=== PATIENT | male | born 1980 | race Caucasian/White ===

== ENCOUNTER → 2016-11-17 | Outpatient (CLI) | payer OTHER ==
--- NOTE | 2016-11-17 08:05 | US ---
EXAMINATION TYPE: US abdomen complete DATE OF EXAM: 11/17/2016 7:34 AM COMPARISON: NONE CLINICAL HISTORY: R10.9 ABD Pain. Patient states has abdominal bloating x 2 months with MARCUS, has HX o f asthma EXAM MEASUREMENTS: Liver Length: 17.2 cm Gallbladder Wall: 0.2 cm CBD: 0.4 cm Spleen: 10.7 cm Right Kidney: 11.9 x 6.8 x 4.9 cm Left Kidney: 11.5 x 5.5 x 5.5 cm TECHNOLOGIST IMPRESSION: Pancreas: hyperechoic and limitedly seen due to overlying bowel gas that is prominent throughout who le midline abdomen Liver: hyperchoic Gallbladder: wnl Evidence for sonographic Browne's sign: No CBD: wnl Spleen: wnl Right Kidney: wnl Left Kidney: wnl Upper IVC: wnl Abd Aorta: wnl Pancreas is felt suboptimally evaluated on images saved due to shadowing from overlying bowel gas and patient's body habitus. Liver is heterogeneously hyperechoic in appearance suggesting diffuse fatty infiltration. No hepatic ductal dilatation is seen. Evaluation for focal masses is limited due to the heterogeneity. IMPRESSION: No ascites is present. Probable fatty infiltration of liver is noted.
== END | disposition home or self-care (01) ==
LOC: RADUSWWP 06:47
PROVIDERS: ATTEND Family Medicine
DX: R10.9 Unspecified abdominal pain (principal)
CPT/HCPCS: 76700

== ENCOUNTER 2016-12-13 08:25 | Day surgery (SDC) | payer OTHER ==
[2016-12-11 14:42] VITALS: BMI 33.2
[2016-12-13 09:17] VITALS: TEMP 97.6
[2016-12-13] MEDS: LACTATED RINGERS 1,000 ML IV SCH (09:18)
[2016-12-13] MEDS ORDERED: LIDOCAINE 1% INJ 10MG/ML (20 ML MDV) ONE (09:21)
[2016-12-13] MEDS ORDERED: PROPOFOL 10 MG/ML 20 ML VIAL IV ONE (09:21)
--- NOTE | 2016-12-13 09:43 | P.PCN ---
Date of Procedure: 12/13/16 Procedure(s) Performed: Brief history: Patient is a pleasant 36-year-old white male, scheduled for an elective upper endoscopy as well as colonoscopy as a part of evaluation of gastric esophageal reflux symptoms, abdominal bloating and intermittent rectal bleeding for the last 6 months duration. Procedure performed: Esophagogastroduodenoscopy with biopsy Colonoscopy Preoperative diagnosis: Abdominal bloating Rectal bleeding Anesthesia: MAC Procedure: After informed consent was obtained from the patient was brought into the endoscopy unit and IV conscious sedation was administered by anesthesia under continuous monitoring. Initially upper endoscopy was done. The Olympus GF 160 video endoscope was inserted inserted into the mouth and esophagus intubated without any difficulty and was gradually advanced into the stomach and duodenum and carefully examined. The bulb and second part of the duodenum appeared normal. Biopsies were done from the duodenum to rule out celiac disease. The scope was then withdrawn into the stomach adequately insufflated with air and upon careful examination the antrum had mild gastritis and biopsies were done from this area. The body, cardia and fundus appeared normal. The scope was then withdrawn into the esophagus. The GE junction was located at 40 cm to the incisors. It appeared regular wit2 superficial erosions consistent with LA grade B reflux esophagitis.Rest of the esophagus appeared normal. Patient tolerated the procedure well. At this time the patient continued to remain sedation. Initial digital rectal examination was normal. Olympus CF 160 video colonoscope was then inserted into the rectum and gradually advanced to the cecum without any difficulty. Careful examination was performed as the scope was gradually being withdrawn. The prep was excellent. The cecum, ascending colon, transverse colon, descending colon, sigmoid colon and rectum appeared normal. Retroflexion was performed in the rectum and no lesions were noted. Patient tolerated the procedure well. Impression: 1. Upper endoscopy revealed LA grade B reflux esophagitis, small hiatal hernia and mild antral gastritis 2. Colonoscopy revealed normal-appearing colon from rectum to cecum with no evidence of colitis or colorectal neoplasia. Recommendations: Findings of this examination were discussed with the patient as well as his family. He was advised to follow with the biopsy results. he was advised to increase Prilosec to 20 mg twice daily for 8 weeks and then down to 20 mg daily. He was briefly educated about and reflux measures.
[2016-12-13 09:49] VITALS: RESP 16
[2016-12-13 10:04] VITALS: BP 116/79; PULSE 76
== END 2016-12-13 10:23 | disposition home or self-care (01) ==
LOC: ORWHC2ENDO 08:25
PROVIDERS: ATTEND Internal Medicine Gastroenterology
DX: K21.0 Gastro-esophageal reflux disease with esophagitis (principal); K29.70 Gastritis, unspecified, without bleeding; K44.9 Diaphragmatic hernia without obstruction or gangrene; K62.5 Hemorrhage of anus and rectum; Z88.0 Allergy status to penicillin; I10 Essential (primary) hypertension; Z79.899 Other long term (current) drug therapy
CPT/HCPCS: 88305; 88342; 45378; 43239; J2001; J2704

== ENCOUNTER → 2016-12-22 | Outpatient (CLI) | payer OTHER ==
--- NOTE | 2016-12-25 11:58 | ECHOF ---
Referral Reason:R00.2 palpitations MEASUREMENTS -------- HEIGHT: 188.0 cm WEIGHT: 127.0 kg BP: 145/98 RVIDd: 2.8 cm (< 3.3) IVSd: 1.2 cm (0.6 - 1.1) LVIDd: 4.9 cm (3.9 - 5.3) LVPWd: 1.3 cm (0.6 - 1.1) IVSs: 1.6 cm LVIDs: 3.1 cm LVPWs: 1.6 cm LA Diam: 3.5 cm (2.7 - 3.8) LAESV Index (A-L): 26.22 ml/m Ao Diam: 3.7 cm (2.0 - 3.7) AV Cusp: 2.4 cm (1.5 - 2.6) LA Diam: 4.0 cm (2.7 - 3.8) MV EXCURSION: 17.354 mm (> 18.000) MV EF SLOPE: 60 mm/s (70 - 150) EPSS: 0.2 cm MV E Shine: 0.59 m/s MV DecT: 298 ms MV A Shine: 0.56 m/s MV E/A Ratio: 1.06 RAP: 5.00 mmHg RVSP: 18.61 mmHg FINDINGS -------- Sinus rhythm. This was a technically good study. There is mild concentric left ventricular hypertrophy. Overall left ventricular systolic function is normal with, an EF between 55 - 60 %. The right ventricle is normal in size. Normal LA size by volume 22+/-6 ml/m2. The right atrial size is normal. There is mild aortic valve sclerosis. There is no evidence of aortic regurgitation. Mild mitral annular calcification present. Mild mitral regurgitation is present. Trace tricuspid regurgitation present. There is no evidence of pulmonary hypertension. The right ventricular systolic pressure, as measured by Doppler, is 18.61mmHg. There is no pulmonic regurgitation present. The aortic root size is normal. There is no pericardial effusion. CONCLUSIONS -------- 1. There is mild concentric left ventricular hypertrophy. 2. Overall left ventricular systolic function is normal with, an EF between 55 - 60 %. 3. Normal LA size by volume 22+/-6 ml/m2. 4. There is mild aortic valve sclerosis. 5. Mild mitral annular calcification present. 6. Mild mitral regurgitation is present. 7. Trace tricuspid regurgitation present. 8. There is no evidence of pulmonary hypertension. 9. The right ventricular systolic pressure, as measured by Doppler, is 18.61mmHg. PRINCIPAL DEVELOPER: Ayesha Rojas RDCS
== END | disposition home or self-care (01) ==
LOC: RADECHMAIN 14:43
PROVIDERS: ATTEND Family Medicine
DX: R00.2 Palpitations (principal)
CPT/HCPCS: 93306

== ENCOUNTER → 2017-04-02 | Outpatient (CLI) | payer OTHER ==
--- NOTE | 2017-04-02 15:48 | US ---
EXAMINATION TYPE: US venous doppler duplex LE RT DATE OF EXAM: 04/02/2017 3:08 PM COMPARISON: NONE CLINICAL HISTORY: Rt Leg Pain in right M79.604. pt has focal areas of redness and pain, no prev dvt SIDE PERFORMED: right TECHNIQUE: The lower extremity deep venous system is examined utilizing real time linear array sonog ruba with graded compression, doppler sonography and color-flow sonography. VESSELS IMAGED: External Iliac Vein (EIV) Common Femoral Vein Deep Femoral Vein Femoral Vein Popliteal Vein Proximal Calf Veins Right Leg: neg for RLE dvt; at the pt's area of focal pain and redness, there is superficial thrombo phlebitis Results called to Yahaira in the office at the time of the exam. Grayscale, color doppler, spectral doppler imaging performed of the deep veins of the right lower ex tremity. There is normal flow, compressibility, vascular waveforms in the right lower extremity. IMPRESSION: No ultrasound evidence for acute DVT in the right lower extremity. Superficial thrombus n oted at right knee level at site of pain is consistent with thrombophlebitis.
== END | disposition home or self-care (01) ==
LOC: RADUSWWP 14:37
PROVIDERS: ATTEND Family Medicine
DX: I82.811 Embolism and thrombosis of superficial veins of right lower extremity (principal)

== ENCOUNTER → 2017-04-26 | Outpatient (CLI) | payer OTHER ==
--- NOTE | 2017-04-26 09:50 | US ---
EXAMINATION TYPE: US abdomen complete DATE OF EXAM: 04/26/2017 COMPARISON: Complete abdominal ultrasound November 17, 2016 CLINICAL HISTORY: R16.0 Hepatomegaly, not elsewhere classified. Hepatomegaly, acid reflux EXAM MEASUREMENTS: Liver Length: 17.6 cm Gallbladder Wall: 0.2 cm CBD: 0.4 cm Spleen: 11.8 cm Right Kidney: 9.8 x 4.9 x 5.7 cm Left Kidney: 11.8 x 5.7 x 4.8 cm Pancreas: obscured by overlying midline bowel gas Liver: measures in upper limits of normal, Gallbladder: wnl Evidence for sonographic Browne's sign: no CBD: visualized portions wnl, limited by overlying bowel gas Spleen: visualized portions wnl, limited by overlying bowel gas Right Kidney: wnl Left Kidney: wnl Upper IVC: wnl Abd Aorta: visualized portions wnl, limited by overlying midline bowel gas The liver is heterogeneous. Evaluation for focal masses is suboptimal due to the heterogeneity but n o suspicious masses or ductal dilatation is clearly seen The intrahepatic portion of the IVC and visu alized abdominal aorta are within normal limits. There is no evidence of cholelithiasis. Common semaj e duct is unremarkable. The pancreas is predominantly obscured by overlying bowel gas on images save d. The spleen is unremarkable. Kidneys are symmetric and free of hydronephrosis. No renal lesions are seen. IMPRESSION: Suboptimal study, heterogeneous liver suggesting diffuse fatty infiltration redemonstrate d. No significant new finding is identified.
== END ==
LOC: RADUSWWP 08:46
PROVIDERS: ATTEND Family Medicine
DX: R16.0 Hepatomegaly, not elsewhere classified (principal)
CPT/HCPCS: 76700

== ENCOUNTER → 2017-12-03 | Outpatient (CLI) | payer OTHER ==
[2017-11-08 12:18] VITALS: BMI 35.5
[2017-12-03 12:04] VITALS: BP 160/109; PULSE 90; RESP 18; TEMP 97.8
--- NOTE | 2017-12-03 12:10 | P.HPIM ---
History of Present Illness H&P Date: 12/03/17 Chief Complaint: low back and left leg pain and numbness This is a 37-year-old patient referred by Dr. Thorpe for chronic pain in low back and left lower extremity, along with right knee. Patient has been taking medications from primary care physician including OTC medications with some relief. Patient denies adverse drug effects from medications. Patient also denies new-onset weakness, bowel/bladder incontinence, or any other signs or symptoms of cauda equina syndrome. There are no signs of acute intoxication, and no indications of medication diversion or overuse. Patient notes that pain worsens significantly with standing and walking, and improves with rest, ice, and medication. Patient has used several types of medications for pain, including NSAIDS, OPIOIDS ([place] in the past). Patient HAS NOT had surgery. Patient HAS NOT had injections previously. Patient HAS NOT had physical therapy recently. In addition to above, 13-point review of systems is also negative for chest pain , shortness of breath, changes in vision, changes in hearing, new onset weakness , abdominal pain, diarrhea, extreme fatigue, malaise, fever, skin changes, homicidal or suicidal ideation, or bowel or bladder incontinence. Vital Signs: Reviewed in EMR Gen: WDWN, AAOx3, NAD HEENT: NCAT, EOMI, hearing grossly normal Pulm: resp unlabored Abd: soft, NT, ND Neck: supple, trachea midline ROM in flexion lumbar spine: reduced ROM in extension lumbar spine: reduced Lumbar paravertebral tenderness: + Facet loading: + bilateral, L > R SI joint tenderness: + L side Bob's test: + L side Straight leg raise: +LLE at 10 degrees Lower extremity: decreased ROM R knee secondary to pain Neuro: CN II-XII grossly intact, muscle strength lower extremities PRESERVED Past Medical History Past Medical History: Asthma, GERD/Reflux, Hypertension, Musculoskeletal Disorder Additional Past Medical History / Comment(s): low back pain & left thigh numb History of Any Multi-Drug Resistant Organisms: None Reported Past Surgical History: Orthopedic Surgery Additional Past Surgical History / Comment(s): ankle, elbow surg., laser eye surg. Colonoscopy; EGD Past Anesthesia/Blood Transfusion Reactions: No Reported Reaction Past Psychological History: No Psychological Hx Reported Smoking Status: Current every day smoker Past Alcohol Use History: None Reported Additional Past Alcohol Use History / Comment(s): down to 2-3 cigs/day from 1ppd since age of 8 Past Drug Use History: None Reported - Past Family History Father Family Medical History: Deep Vein Thrombosis (DVT) Brother(s) Family Medical History: Cancer Medications and Allergies Home Medications Medication Instructions Recorded Confirmed Type Acetaminophen Tab [Tylenol Tab] 2,000 mg PO BID PRN 07/25/17 12/03/17 History Ibuprofen [Motrin] 600 mg PO Q6HR PRN 07/25/17 12/03/17 History Diclofenac Sodium Gel [Voltaren 4 gm TOPICAL QID #1 tub 12/03/17 Rx Gel] Allergies Allergy/AdvReac Type Severity Reaction Status Date / Time Penicillins Allergy Anaphylaxis Verified 12/03/17 11:56 Physical Exam Vitals: Vital Signs Temp Pulse Resp BP Pulse Ox 12/03/17 11:58 97.8 F 90 18 160/109 97 Assessment and Plan (1) Lumbar spondylosis with myelopathy Current Visit: Yes Status: Chronic Code(s): M47.16 - OTHER SPONDYLOSIS WITH MYELOPATHY, LUMBAR REGION SNOMED Code(s): 66807037 (2) Knee osteoarthritis Current Visit: Yes Status: Chronic Code(s): M17.10 - UNILATERAL PRIMARY OSTEOARTHRITIS, UNSPECIFIED KNEE SNOMED Code(s): 787186238 (3) Chronic pain syndrome Current Visit: Yes Status: Chronic Code(s): G89.4 - CHRONIC PAIN SYNDROME SNOMED Code(s): 568548155 Plan: 1. Explanation: Opioid and psychological risk scores were reviewed. Diagnoses , prognoses, and multiple treatment options including but not limited to physical therapy, interventional therapies, adjuvant medical therapies, narcotic medication therapies, and surgery were discussed with the patient and all questions were answered to the patient's satisfaction. 2. Opioid agreement: no opioids prescribed today 3. Counseling: The patient was counseled extensively on SMOKING CESSATION, BODY MASS INDEX, EXERCISE. Specifically, the patient was instructed regarding the importance of smoking cessation, weight control, and exercise in the context of both chronic pain and overall health. 4. Procedures: LESI series L2-L3 if possible 5. Consultations: none 6. Investigations: none 7. Medications: Voltaren gel for right knee 8. Disposition: f/u for procedure as scheduled PQRS measures: 1-Patient's medications are documented in the chart. 2-Tobacco use is positive, counseling given 3-Patient has not had a pneumococcal vaccine. 4-Advanced care planning discussed, patient unable to give. 5-Opioid contract NOT signed with the patient. 6-Pain positive, follow-up visit or procedure scheduled 7-Patient's blood pressure measured and documented, and patient will follow up with the primary care due to hypertension. 8-Patient's weight was measured, and body mass index ABOVE the normal limits, and counseling was done. Patient instructed to follow up with PCP. 9-Patient WAS NOT identified as an unhealthy alcohol user. Time with Patient: Greater than 30
== END | disposition home or self-care (01) ==
LOC: PNWHC3 11:27
PROVIDERS: ATTEND Anesthesiology
DX: G89.4 Chronic pain syndrome (principal); M47.16 Other spondylosis with myelopathy, lumbar region; M17.10 Unilateral primary osteoarthritis, unspecified knee; Z88.0 Allergy status to penicillin; F17.200 Nicotine dependence, unspecified, uncomplicated; K21.9 Gastro-esophageal reflux disease without esophagitis; I10 Essential (primary) hypertension; Z79.1 Long term (current) use of non-steroidal anti-inflammatories (NSAID); Z79.891 Long term (current) use of opiate analgesic
CPT/HCPCS: 99201

== ENCOUNTER 2017-12-08 09:54 | Emergency (ER) | payer OTHER ==
[2017-12-08 09:56] VITALS: TEMP 98
--- NOTE | 2017-12-08 10:23 | ED ---
General Adult HPI - General Chief complaint: Extremity Injury, Lower Stated complaint: LEFT FOOT PAIN Time Seen by Provider: 12/08/17 10:05 Source: patient, RN notes reviewed Mode of arrival: ambulatory Limitations: no limitations - History of Present Illness Initial comments: 37-year-old male presents to the emergency department with a chief complaint of left foot pain. He states that he stepped down on some stairs and twisted his left foot continued to have pain. He states once he gets up moving unable feel better but initially he does have a lot of increased pain. He denies any injury to the ankle or knee. He denies any other injury from the incident. Patient denies any recent fever, chills, shortness of breath, chest pain, back pain, abdominal pain, nausea vomiting, numbness or tingling, dysuria or hematuria, constipation or diarrhea, headaches or visual changes, or any other current symptoms. - Related Data Home Medications Medication Instructions Recorded Confirmed Acetaminophen Tab [Tylenol Tab] 2,000 mg PO BID PRN 07/25/17 12/03/17 Ibuprofen [Motrin] 600 mg PO Q6HR PRN 07/25/17 12/03/17 Previous Rx's Medication Instructions Recorded Diclofenac Sodium Gel [Voltaren 4 gm TOPICAL QID #1 tub 12/03/17 Gel] Ibuprofen [Motrin] 600 mg PO Q6HR PRN #20 tab 12/08/17 Allergies Allergy/AdvReac Type Severity Reaction Status Date / Time Penicillins Allergy Anaphylaxis Verified 12/08/17 09:56 Review of Systems ROS Statement: Those systems with pertinent positive or pertinent negative responses have been documented in the HPI. ROS Other: All systems not noted in ROS Statement are negative. Past Medical History Past Medical History: Asthma, GERD/Reflux, Hypertension, Musculoskeletal Disorder Additional Past Medical History / Comment(s): low back pain & left thigh numb History of Any Multi-Drug Resistant Organisms: None Reported Past Surgical History: Orthopedic Surgery Additional Past Surgical History / Comment(s): ankle, elbow surg., laser eye surg. Colonoscopy; EGD Past Anesthesia/Blood Transfusion Reactions: No Reported Reaction Past Psychological History: No Psychological Hx Reported Smoking Status: Current every day smoker Past Alcohol Use History: None Reported Past Drug Use History: None Reported - Past Family History Father Family Medical History: Deep Vein Thrombosis (DVT) Brother(s) Family Medical History: Cancer General Exam - General Exam Comments Initial Comments: General: The patient is awake and alert, in no distress, and does not appear acutely ill. Neck: The neck is supple, there is no tenderness. Cardiovascular: There is a regular rate and rhythm. No murmur, rub or gallop is appreciated. Respiratory: Lungs are clear to auscultation, respirations are non-labored, breath sounds are equal. No wheezes, stridor, rales, or rhonchi. Musculoskeletal: Sensation intact with 2+ pulses. Left flexion. Full range of motion of left knee and left ankle. Patient has some pain along the lateral forefoot. No deformity no swelling no ecchymosis. Less than 2 capillary refill. Neurological: CN II-XII intact, There are no obvious motor or sensory deficits. Coordination appears grossly intact. Speech is normal. Skin: Skin is warm and dry and no rashes or lesions are noted. Psychiatric: Normal mood and affect. Limitations: no limitations Course Vital Signs 12/08/17 12/08/17 09:55 10:37 Temperature 98.0 F Pulse Rate 87 85 Respiratory 20 18 Rate Blood Pressure 181/116 151/112 O2 Sat by Pulse 99 98 Oximetry Procedures - Orthopedic Splinting/Casting Injury #1 Side: left Lower Extremity Injury Location: foot Lower Extremity Immobilizer: Ferdinand wrap Medical Decision Making - Medical Decision Making 37-year-old male presents to the emergency Department chief complaint of left foot pain. At this time x-rays reviewed that shows no acute fracture. This and we discussed the left foot sprain. We did discuss continued follow-up with or throat symptoms do not improve. We did give him the information. Patient is also found to be very hypertensive. We discussed in depth about this. He is supposed to be on multiple different hypertensive medications which she has not been taking for 2 years. He states he they make him feel weird. We discussed that with how high his blood pressure as he could have a stroke he could or have multiple other complications. He states that he is been informed of these risks before. He states this is his normal blood pressure. He does not want any treatment for we offered him medications we've offered him additional therapy for home. He states he does not want this. He states that he is just here for his foot. Risks were thoroughly discussed he stated he understood. Patient will be discharged by his request at this time even though there is concern for his blood pressure. - Radiology Data Radiology results: report reviewed, image reviewed Disposition Clinical Impression: Sprain of left foot Disposition: HOME SELF-CARE Condition: Stable Instructions: Foot Sprain (ED) Additional Instructions: Please use medication as discussed. Please follow up with family doctor if symptoms have not improved over the next two days. Please return to the emergency room if your symptoms increase or worsen or for any other concerns. Prescriptions: Ibuprofen [Motrin] 600 mg PO Q6HR PRN #20 tab PRN Reason: Pain Referrals: Ric Olguin MD [Primary Care Provider] - 1-2 days Cristian Moraes MD [STAFF PHYSICIAN] - 1-2 days Time of Disposition: 10:47
--- NOTE | 2017-12-08 10:29 | XR ---
EXAMINATION TYPE: XR foot complete RT , 3 VIEWS DATE OF EXAM ORDERED: 12/08/2017 HISTORY: Lateral foot pain. COMPARISON: Previous study dated 06/01/2011. FINDINGS: No fracture, dislocation or other acute osseous lesion is seen. Note is made of a plantar calcaneal spur. IMPRESSION: 1. NO ACUTE OSSEOUS LESION. 2. PLANTAR CALCANEAL SPUR.
[2017-12-08 10:41] VITALS: BP 151/112; PULSE 85; RESP 18
== END 2017-12-08 11:05 | disposition home or self-care (01) ==
LOC: EC 09:54
DX: S93.602A Unspecified sprain of left foot, initial encounter (principal); I10 Essential (primary) hypertension; F17.200 Nicotine dependence, unspecified, uncomplicated; Z88.0 Allergy status to penicillin; W10.9XXA Fall (on) (from) unspecified stairs and steps, initial encounter; Y92.009 Unspecified place in unspecified non-institutional (private) residence as the place of occurrence of the external cause
CPT/HCPCS: 99283

== ENCOUNTER 2017-12-24 06:50 | Day surgery (SDC) | payer OTHER ==
[2017-12-19 13:03] VITALS: BMI 35.5
[~2017-12-24 06:50] MED LIST: LACTATED RINGERS 1,000 ML IV ONE
[2017-12-24 07:47] VITALS: TEMP 98.3
[2017-12-24] MEDS ORDERED: LACTATED RINGERS 1,000 ML IV ONE ×2 (07:53)
[2017-12-24] MEDS ORDERED: LABETALOL 5 MG/ML VIAL MDV ONE ×2 (07:59→08:00)
[2017-12-24] MEDS ORDERED: LABETALOL 5 MG/ML VIAL MDV IVP ONE (08:03)
--- NOTE | 2017-12-24 08:56 | P.PCN ---
Date of Procedure: 12/24/17 Anesthesia: MAC (Local with IV moderate conscious sedation with 2 mg of Versed and 100 g of fentanyl) Surgeon: She Keyes Condition: stable Disposition: PACU Description of Procedure: PREOPERATIVE DIAGNOSIS: 1-Lumbar radiculopathy 2- Lumber Degenerative Disc Diseases. POSTOPERATIVE DIAGNOSIS: 1-Lumbar radiculopathy. 2-Lumber Degenerative Disc Diseases PROCEDURE 1. Lumbar epidural steroid injection under fluoroscopic guidance at the L2-3 left paramedian interlaminar approach. 2. Lumbar epidurogram. ANESTHESIA: Local with 1% lidocaine; IV sedation with Versed ---mg ,and fentanyle EBL: Minimal PROCEDURE INDICATION: The patient with low back pain and radiculitis symptoms unresponsive to conservative treatment. Fluoroscopy was used to optimize visualization of the needle placement and to maximize safety. PROCEDURE DESCRIPTION / TECHNIQUE: The patient was seen and identified in the preoperative area. Risks, benefits , complications including but not limited to infections ,bleeding ,allergic reaction to the medications ,nerve damage and not complete pain relief , and alternatives were discussed with the patient. The patient agreed to proceed with the procedure and signed the consent. IV was started, and vital signs were stable. Patient was taken to the OR and time out was completed. The patient was placed in the prone position on procedure table and a pillow was placed under the abdomen to reduce lumbar lordosis. The lumbosacral area was prepped and draped in the usual sterile fashion with Betadine 3.Patient was closely monitored during the procedure. Conscious sedation was used during the procedure to decrease patients anxiety. Vital signs were monitered during the entire procedure. Using anterior-posterior fluoroscopy, the L2-3 interlaminar space was identified and the skin over this site was marked and then infiltrated with 1% lidocaine subcutaneously. Subsequently, a 20-gauge Tuohy epidural needle was inserted and advanced toward the epidural space using the Loss of resistance to air technique and guided by AP and lateral fluoroscopy. The correct needle position in the epidural space was verified with the injection of 1 mL of the water soluble contrast dye Omnipaque 180 contrast and observing an excellent epidurogram with the epidural spread of the dye, after negative aspiration for blood and CSF and in the absence of paresthesias. Again after negative aspiration, a 8 ml mixture containing 80 mg of Kenalog and 5 ml of preservative free Normal Saline, and 2 ml of preservative free Marcaine 0.25% solution was injected and a washout of epidurogram was seen. Needle was withdrawn intact, skin was cleansed, and bandages were applied. patient tolerated procedure well and was transferred to PACU in stable condition. The patient has numbness in the left thigh and we might need to send him to have an EMG done to rule out meralgia paresthetica. If He does not get good results after this injection then the next one might need to be done at the L3- 4 level. COMPLICATIONS: None
[2017-12-24 09:05] VITALS: RESP 16
--- NOTE | 2017-12-24 09:12 | FL ---
EXAMINATION TYPE: FL guided pain mgmt statistic DATE OF EXAM: 12/24/2017 COMPARISON: NONE HISTORY: Lumbar epidural injection and low back pain. TECHNIQUE: Fluoroscopy. FINDINGS/IMPRESSION: Fluoroscopic guidance was provided during procedure performed by Dr. Keyes. A total of 11 seconds of fluoroscopic time was utilized during the procedure and 2 spot images was ac quired demonstrating localization of the lumbar spine.
[2017-12-24 09:14] VITALS: BP 130/85; PULSE 83
[2017-12-24] MEDS ORDERED: IV FLUID CONTINUATION 1,000 ML IV ONE (09:14)
== END 2017-12-24 09:20 | disposition home or self-care (01) ==
LOC: ORPAIN 06:50
PROVIDERS: ATTEND Anesthesiology
DX: G89.4 Chronic pain syndrome (principal); M54.16 Radiculopathy, lumbar region; M51.36 Other intervertebral disc degeneration, lumbar region; M47.16 Other spondylosis with myelopathy, lumbar region; M17.10 Unilateral primary osteoarthritis, unspecified knee; J45.909 Unspecified asthma, uncomplicated; K21.9 Gastro-esophageal reflux disease without esophagitis; I10 Essential (primary) hypertension; F17.210 Nicotine dependence, cigarettes, uncomplicated; Z79.1 Long term (current) use of non-steroidal anti-inflammatories (NSAID); Z88.0 Allergy status to penicillin
CPT/HCPCS: 62323; J2250; J3301; Q9965; J3010

== ENCOUNTER 2018-01-21 06:15 | Day surgery (SDC) | payer OTHER ==
[2018-01-16 08:30] VITALS: BMI 36.1
[~2018-01-21 06:15] MED LIST changes: -LACTATED RINGERS 1,000 ML IV ONE; +LACTATED RINGERS 1,000 ML IV SCH
[2018-01-21 07:08] VITALS: TEMP 97.8
[2018-01-21] MEDS ORDERED: LIDOCAINE 1% 20 ML VIAL (10MG/ML) FOR IV START INTRADERMA ONE (07:13)
--- NOTE | 2018-01-21 07:47 | P.PCN ---
Date of Procedure: 01/21/18 Preoperative Diagnosis: Lumbar Radiculopathy Postoperative Diagnosis: Lumbar Radiculopathy Procedure(s) Performed: Lumbar Epidural Steroid Injection Description of Procedure: Date of Procedure: 01/21/2018 Anesthesia: MAC (Local with IV moderate conscious sedation with 2 mg of Versed and 100 g of fentanyl) Surgeon: Charbel Wilson Condition: stable Disposition: PACU Description of Procedure: PREOPERATIVE DIAGNOSIS: 1-Lumbar radiculopathy 2- Lumber Degenerative Disc Diseases. POSTOPERATIVE DIAGNOSIS: 1-Lumbar radiculopathy. 2-Lumber Degenerative Disc Diseases PROCEDURE 1. Lumbar epidural steroid injection under fluoroscopic guidance at the L3-4 Right paramedian interlaminar approach. 2. Lumbar epidurogram. ANESTHESIA: Local with 1% lidocaine; IV sedation with Versed 2mg and 100mcg fentanyl EBL: Minimal PROCEDURE INDICATION: The patient with low back pain and radiculitis symptoms unresponsive to conservative treatment. Fluoroscopy was used to optimize visualization of the needle placement and to maximize safety. PROCEDURE DESCRIPTION / TECHNIQUE: The patient was seen and identified in the preoperative area. Risks, benefits , complications including but not limited to infections ,bleeding ,allergic reaction to the medications ,nerve damage and not complete pain relief , and alternatives were discussed with the patient. The patient agreed to proceed with the procedure and signed the consent. IV was started, and vital signs were stable. Patient was taken to the OR and time out was completed. The patient was placed in the prone position on procedure table and a pillow was placed under the abdomen to reduce lumbar lordosis. The lumbosacral area was prepped and draped in the usual sterile fashion with Betadine 3.Patient was closely monitored during the procedure. Conscious sedation was used during the procedure to decrease patients anxiety. Vital signs were monitered during the entire procedure. Using anterior-posterior fluoroscopy, the L3-4 interlaminar space was identified and the skin over this site was marked and then infiltrated with 1% lidocaine subcutaneously. Subsequently, a 20-gauge Tuohy epidural needle was inserted and advanced toward the epidural space using the Loss of resistance to air technique and guided by AP and lateral fluoroscopy. The correct needle position in the epidural space was verified with the injection of 1 mL of the water soluble contrast dye Omnipaque 180 contrast and observing an excellent epidurogram with the epidural spread of the dye, after negative aspiration for blood and CSF and in the absence of paresthesias. Again after negative aspiration, a 8 ml mixture containing 80 mg of Kenalog and 5 ml of preservative free Normal Saline, and 2 ml of preservative free Marcaine 0.25% solution was injected and a washout of epidurogram was seen. Needle was withdrawn intact, skin was cleansed, and bandages were applied. patient tolerated procedure well and was transferred to PACU in stable condition. COMPLICATIONS: None
[2018-01-21] MEDS ORDERED: IV FLUID CONTINUATION 350 ML IV ONE (08:13)
[2018-01-21 08:23] VITALS: RESP 18
[2018-01-21 08:31] VITALS: BP 154/88; PULSE 91
--- NOTE | 2018-01-21 09:27 | FL ---
EXAMINATION TYPE: FL guided pain mgmt statistic DATE OF EXAM: 01/21/2018 HISTORY: Pain 1 image scanned. [address] Wilson. MARLIN.
== END 2018-01-21 08:44 | disposition home or self-care (01) ==
LOC: ORPAIN 06:15
PROVIDERS: ATTEND Anesthesiology
DX: M51.16 Intervertebral disc disorders with radiculopathy, lumbar region (principal); Z88.0 Allergy status to penicillin
CPT/HCPCS: 62323; J2250; J3301; J3010; Q9966

== ENCOUNTER → 2018-01-29 | Outpatient (CLI) | payer OTHER ==
[2018-01-29 13:36] VITALS: PULSE 94; RESP 18
--- NOTE | 2018-01-29 14:10 | P.PN ---
Progress Note - Text Progress Note Date: 01/29/18 Patient returns for followup for chronic back pain with radiation to lower extremities, L > R. Patient recently underwent LESI x 2 with 2-3 days' relief only and severe pain after second procedure. Patient continues on only OTC medications for pain with some relief. Patient denies adverse drug effects from medications. Today, pt denies new-onset weakness, bowel/bladder incontinence, or any other signs or symptoms of cauda equina syndrome. There are no signs of acute intoxication, and no indications of medication diversion or overuse. In addition to above, 13-point review of systems is also negative for chest pain , shortness of breath, changes in vision, changes in hearing, new onset weakness , abdominal pain, diarrhea, extreme fatigue, malaise, fever, skin changes, homicidal or suicidal ideation, or bowel or bladder incontinence. Vital Signs: Reviewed in EMR Gen: WDWN, AAOx3, NAD HEENT: NCAT, EOMI, hearing grossly normal Pulm: resp unlabored Abd: soft, NT, ND Neck: supple, trachea midline ROM in flexion lumbar spine: reduced ROM in extension lumbar spine: reduced Lumbar paravertebral tenderness: + Facet loading: + bilateral, L > R SI joint tenderness: neg Bob's test: neg Straight leg raise: + LLE Imaging: Reviewed in EMR Assessment: 1. lumbar disc herniation 2. lumbar spondylosis 3. chronic pain syndrome Plan: 1. Explanation: Opioid and psychological risk scores were reviewed. Diagnoses , prognoses, and multiple treatment options including but not limited to physical therapy, interventional therapies, adjuvant medical therapies, narcotic medication therapies, and surgery were discussed with the patient and all questions were answered to the patient's satisfaction. 2. Opioid agreement: no opioids prescribed today 3. Counseling: The patient was counseled extensively on BODY MASS INDEX, EXERCISE. Specifically, the patient was instructed regarding the importance of weight control, and exercise in the context of both chronic pain and overall health. 4. Procedures: change LESI #3 to left lumbar L3 + L4 TFESI 5. Consultations: None 6. Investigations: UDS not done today, MAPS queried and appropriate 7. Medications: none prescribed 8. Disposition: f/u for procedure as scheduled PQRS measures: 1-Patient's medications are documented in the chart. 2-Tobacco use is positive, counseling given 3-Patient has not had a pneumococcal vaccine. 4-Advanced care planning discussed, patient unable to give. 5-Opioid contract NOT signed with the patient. 6-Pain positive, follow-up visit or procedure scheduled 7-Patient's blood pressure measured and documented, and patient will follow up with the primary care due to hypertension. 8-Patient's weight was measured, and body mass index ABOVE the normal limits, and counseling was done. Patient instructed to follow up with PCP. 9-Patient WAS NOT identified as an unhealthy alcohol user.
[2018-01-29 14:15] VITALS: BP 157/104
== END | disposition home or self-care (01) ==
LOC: PNWHC3 13:01
PROVIDERS: ATTEND Anesthesiology
DX: G89.4 Chronic pain syndrome (principal); M51.26 Other intervertebral disc displacement, lumbar region; M47.816 Spondylosis without myelopathy or radiculopathy, lumbar region; Z79.899 Other long term (current) drug therapy
CPT/HCPCS: 99211

== ENCOUNTER 2018-02-21 06:40 | Day surgery (SDC) | payer OTHER ==
[2018-02-18 18:27] VITALS: BMI 34.4
[2018-02-21 07:29] VITALS: RESP 16; TEMP 98.2
--- NOTE | 2018-02-21 09:18 | P.PCN ---
Date of Procedure: 02/21/18 Procedure(s) Performed: PREOPERATIVE DIAGNOSIS: Lumbar radiculopathy in left L2-3 , L3-4 distribution Lumbar spondylosis with lumbar facet arthropathy POSTOPERATIVE DIAGNOSIS: Same preop diagnosis PROCEDURE 1. Transforaminal epidural steroid injection under fluoroscopic guidance at Left L2-3 ,L3-4 levels. 2. Lumbar epidurogram : ANESTHESIA: Local with 1% lidocaine 3 ml , moderate sedation with intravenous Versed 2 mg and fentanyle 100 micrograms EBL: Minimal PROCEDURE INDICATION: The patient with low back pain and radiculopathy symptoms unresponsive to conservative treatment. PROCEDURE DESCRIPTION / TECHNIQUE: The patient was seen and identified in the preoperative area. Risks, benefits , complications, and alternatives were discussed with the patient. The patient agreed to proceed with the procedure and signed the consent. IV was started, and vital signs were stable. Patient was taken to the OR and time out was completed. The patient was placed in the prone position on procedure table and a pillow was placed under the abdomen to reduce lumbar lordosis. The lumbosacral area was prepped and draped in the usual sterile fashion. Critical pause was taken. Vital signs were closely monitored during the procedure. Conscious sedation was used during the procedure to decrease patients anxiety. Using oblique fluoroscopy, the chin of the ``Teo dog at Left L2-3 level was identified, and the skin and deeper tissues just below was localized with 1 % lidocaine. Subsequently, a 22-gauge 5-inch spinal needle was advanced under a tunneled view fluoroscopic guidance just underneath the chin of the ``Teo dog of left L2-3 . Under lateral fluoroscopy, the needle was then advanced to the posterior border of the interforaminal space. After negative aspiration of CSF and blood and with no paresthesias, 1 mL Isovue 200 contrast dye was injected excellent epidurogram and outlining of the nerve root Subsequently, 3 mL of block solution containing 10 mg Dexamethason and 2 mL of Lidocaine 1% was injected. Needle was removed and the same procedure was repeated at the Left L3-4 . At the end of the procedure, skin was cleansed, and bandages were applied. COMPLICATIONS:none DISPOSITION / PLANS: The patient was placed in a supine position and transferred to the recovery area in a stable condition for observation. There was no evidence of lower extremity motor or sensory deficit after the procedure. Patient was discharged from the recovery room after meeting discharge criteria. Home discharge instructions were given to the patient by the staff. The patient was reexamined prior to discharge.
[2018-02-21] MEDS ORDERED: IV FLUID CONTINUATION 1,000 ML IV ONE (09:22)
[2018-02-21 09:40] VITALS: BP 153/100; PULSE 75
--- NOTE | 2018-02-21 10:36 | FL ---
EXAMINATION TYPE: FL guided pain mgmt statistic DATE OF EXAM: 02/21/2018 CLINICAL HISTORY: Low back pain. TECHNIQUE: Fluoroscopy. COMPARISON: None. FINDINGS: Fluoroscopic guidance was provided during pain relief procedure performed by Dr. Sahu . A total of 20 seconds of fluoroscopic time was utilized during the procedure and four spot intraop erative fluoroscopic images are acquired. Images acquired shows needle localization at a few levels in the lumbar spine with contrast injection. IMPRESSION: As Above.
== END 2018-02-21 09:53 | disposition home or self-care (01) ==
LOC: ORPAIN 06:40
PROVIDERS: ATTEND Specialist
DX: M47.26 Other spondylosis with radiculopathy, lumbar region (principal); I10 Essential (primary) hypertension; Z88.0 Allergy status to penicillin
CPT/HCPCS: 64483; 64484; J2250; J3301; J3010; Q9966; 99152

== ENCOUNTER → 2018-03-04 | Outpatient (CLI) | payer OTHER ==
[2018-03-04 14:08] VITALS: RESP 18; TEMP 98.3
[2018-03-04 14:29] VITALS: BP 171/116; PULSE 92
--- NOTE | 2018-03-04 14:45 | P.PAINPG ---
Subjective Progress Note Date: 03/04/18 This very pleasant 37-year-old man with a history of low back pain and left buttocks pain as well as left leg numbness who presents today for follow-up appointment. He is undergone previous epidural steroid injections. These have provided him between 2 and 5 days of relief. He continues to have pain in this area. He presents today for further instruction on his pain management. Objective - Vital Signs Vital signs: Vital Signs Temp 98.3 F 03/04/18 14:00 Pulse Resp 18 03/04/18 14:00 BP 155/117 03/04/18 14:00 Pulse Ox Intake & Output 03/03/18 03/04/18 03/04/18 18:59 06:59 18:59 Weight 130.635 kg - Exam Gen: WDWN, AAOx3, NAD HEENT: NCAT, EOMI, hearing grossly normal Pulm: resp unlabored Abd: soft, NT, ND ROM in flexion lumbar spine: Normal ROM in extension lumbar spine: Decreased Lumbar paravertebral tenderness: Positive on the left Facet loading: Positive on the left SI joint tenderness: Positive on the left Bob's test: Positive on the left Straight leg raise: Negative Neuro: muscle strength lower extremities normal Assessment and Plan (1) Sacroiliitis Current Visit: Yes Status: Acute Code(s): M46.1 - SACROILIITIS, NOT ELSEWHERE CLASSIFIED SNOMED Code(s): 62558589 Plan: 1. We'll schedule the patient for a left sacroiliac joint injection. 2. I strongly encouraged him to follow up with his primary care physician regarding his blood pressure. He has not taken his blood pressure medication today or the day before in his blood pressure today is 171/116. He is a symptomatic from this. He reports that the blood pressure medication is causing blurriness in his right eye vision. His primary care doctor is aware of this and he is going to see them in a couple of days. 3. 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 PQRS Measure Charge Sheet Measure #226: Tobacco Use: Screen & Cessation Intervention: Pt screened for tobacco use AND intervention given Measure #111: Pneumonia Vaccination: Pneumococcal vaccine NOT administered or previously given Measure #47: Advance Care Plan: Advance care planning discussed & documented, pt chose/unable to give Measure #412: Opioid Treatment Agreement: No documentation of signed opioid treatment agreement Measure #408: Opioid Therapy Follow-up Evaluation: Patient had NO f/u eval minimum every 3 months during opioid therapy Measure #317: Preventitive Care & Scrn High Bld Press & F/U: Pre-hypertensive or hypertensive BP documented, pt will f/u with PCP Measure #128: Body Mass Index (BMI) Screening & Follow-up: BMI documented ABOVE normal parameters - f/u documented Measure #131: Pain Assessment & Follow-up: Pain positive & plan documented Measure #431: Unhealthy Alcohol Use Preventative Care & Scrn: Patient not identified as an unhealthy alcohol user PQRS Narrative: Smoking Status Current every day smoker Do You Want the Pneumonia No Vaccine AT THIS TIME? Blood Pressure 155/117 Pain Intensity [Left Lower 7 Back] Hx Alcohol Use (MH) No Home Medications: Ambulatory Orders Ranitidine HCl 150 mg PO BID 12/24/17 Losartan [Cozaar] 100 mg PO DAILY 01/16/18 Acetaminophen [Tylenol Extra Strength] 1,000 mg PO BID 02/18/18 Cholecalciferol [Vitamin D3] 5,000 unit PO DAILY 02/18/18 Cyanocobalamin (Vitamin B-12) [Vitamin B-12] 1,000 mcg PO DAILY 02/18/18 Ibuprofen [Advil] 400 mg PO BID 02/18/18 Vitamin C (Unknown Dose) 1 tab PO DAILY 02/18/18 Naproxen Sodium [Aleve] 220 mg PO DIRECTED PRN 03/04/18 Controlled Substance Measures - Controlled Substance Measures Is patient prescribed a controlled substance at discharge?: No If prescribed controlled substance>3 days was MAPS reviewed?: No When asked, does pt state using other controlled substances?: No
== END | disposition home or self-care (01) ==
LOC: PNWHC3 13:41
PROVIDERS: ATTEND Pain Medicine Pain Medicine
DX: M46.1 Sacroiliitis, not elsewhere classified (principal); F17.200 Nicotine dependence, unspecified, uncomplicated; Z79.899 Other long term (current) drug therapy; Z79.1 Long term (current) use of non-steroidal anti-inflammatories (NSAID)
CPT/HCPCS: 99211

== ENCOUNTER → 2018-04-13 | Outpatient (CLI) | payer OTHER ==
--- NOTE | 2018-04-13 09:45 | MR ---
EXAMINATION TYPE: MR knee LT wo con DATE OF EXAM: 04/13/2018 COMPARISON: Plain film 05/04/2010 HISTORY: Lt knee pain x 2 yrs TECHNIQUE: Multiplanar, multisequence imaging of the left knee is performed without IV contrast. FINDINGS: MEDIAL MENISCUS: There is abnormal increased linear signal present within the posterior horn of the m edial meniscus, some increased signal extends into the body and anterior horn of the meniscus althoug h extension to the articular surface is not seen with certainty but may be present on coronal image 1 9 LATERAL MENISCUS: The posterior root of the lateral meniscus is not well-defined, difficult to exclud e a root tear, there is some increased signal within the posterior horn of the lateral meniscus which extends the articular surface and is suspicious for tear CRUCIATE LIGAMENTS: Anterior cruciate ligament fibers are intact however at the insertion there is so me fluid signal present possibly posttraumatic due to partial tear or degenerative, posterior cruciat e ligament is not seen, there is some fluid signal along its expected distribution. COLLATERAL LIGAMENTS: The medial collateral ligament and lateral collateral ligament complex are inta ct and unremarkable. EXTENSOR MECHANISM: Visualized quadriceps and patellar tendons are intact. EFFUSION: Small joint effusion present POPLITEAL CYST: No popliteal/pacheco cyst. TRICOMPARTMENT SPACES: Maintained CARTILAGE: No significant chondromalacia evident at the medial and lateral compartments, there is gra de 2 to grade III chondromalacia posterior patella BONE MARROW SIGNAL: There is abnormal increased signal on T2-weighted sequences, intermediate signal on T1 at the level of the tibial spines extending to the level of the insertion of the anterior cruci ate ligament. Suggestion of the channel seen on sagittal image 16 at the level of the proximal tibia centrally with some fluid signal extending into the joint and bone. OTHER: Varices are noted incidentally within the subcutaneous soft tissues. There is some subcutaneo us edema. IMPRESSION: Posterior cruciate ligament disruption is likely chronic, there may be posttraumatic change to the pr oximal tibia, geode formation, possible ganglion formation. Difficult to exclude tear of the medial and lateral meniscus as described. Chondromalacia changes are present, additional findings above.
== END | disposition home or self-care (01) ==
LOC: RADMRIMAIN 08:56
PROVIDERS: ATTEND Family Medicine
DX: S83.522A Sprain of posterior cruciate ligament of left knee, initial encounter (principal); M22.42 Chondromalacia patellae, left knee

== ENCOUNTER → 2018-12-13 | Outpatient (CLI) | payer OTHER ==
[2018-12-13 10:46] LABS: HCT 47.3 % (39.0-53.0); HGB 15.8 gm/dL (13.0-17.5); MCHC 33.5 g/dL (31.0-37.0); MCV 92.5 fL (80.0-100.0); Mean Platelet Volume 6.8; Platelet Count 194 k/uL (150-450); RBC 5.11 m/uL (4.30-5.90); RDW 13.4 % (11.5-15.5); WBC 5.4 k/uL (3.8-10.6)
[2018-12-13 10:57] LABS: INR 0.9 (<1.2); Partial Thromboplastin Time 24.2 sec (22.0-30.0); Prothrombin Time 9.5 sec (9.0-12.0)
[2018-12-13 10:58] LABS: Potassium 4.4 mmol/L (3.5-5.1)
== END | disposition home or self-care (01) ==
LOC: LABPAT 10:09
PROVIDERS: ATTEND Orthopaedic Surgery
DX: Z01.812 Encounter for preprocedural laboratory examination (principal); M25.552 Pain in left hip; M87.052 Idiopathic aseptic necrosis of left femur; I10 Essential (primary) hypertension; F17.200 Nicotine dependence, unspecified, uncomplicated
CPT/HCPCS: 36415; 80051; 82565; 84520; 85027; 85610; 85730; 87070

== ENCOUNTER 2018-12-17 05:43 | Inpatient (IN) | payer OTHER ==
[2018-12-09 11:19] VITALS: BMI 33.7
[~2018-12-17 05:43] MED LIST changes: +ACETAMINOPHEN TAB 500 MG TAB PO ONE; +CLINDAMYCIN 900 MG in DEXTROSE 5% IN WATER 50 ML IVPB ONE; +DEXAMETHASONE SOD PHOSPHATE 10 MG/ML 1 ML VIAL IV ONE; +HYDROmorphone 0.5 MG/0.5 ML SYRINGE IVP PRN; -LACTATED RINGERS 1,000 ML IV SCH; +LIDOCAINE 1% 20 ML VIAL (10MG/ML) FOR IV START INTRADERMA PRN; +MELOXICAM 7.5 MG TAB PO ONE; +MIDAZOLAM (PF) 2 MG/2 ML VIAL IV PRN; +ONDANSETRON 4 MG/2 ML VIAL IVP ONE; +SCOPOLAMINE 1.5MG/72HR PATCH TRANSDERM ONE; +TRANEXAMIC ACID 1,000 MG in SODIUM CHLORIDE 0.9% 100 ML IVPB ONE
[2018-12-17] MEDS ORDERED: ROPIVACAINE 246.25 MG, EPINEPHrine 0.5 MG, KETOROLAC 30 MG, cloNIDine HCL/PF 80 MCG, WA... MISCELLANE ONE ×5 (05:53)
[2018-12-17 06:23] VITALS: RESP 16
[2018-12-17] MEDS: LACTATED RINGERS 1,000 ML IV SCH (06:28)
[2018-12-17] MEDS ORDERED: LACTATED RINGERS 1,000 ML BAG IV ONE (06:55)
[2018-12-17] MEDS ORDERED: MIDAZOLAM 2 MG/2 ML VIAL ONE (06:55)
[2018-12-17] MEDS ORDERED: PROPOFOL 10 MG/ML 20 ML VIAL IV ONE (06:55)
[2018-12-17] MEDS ORDERED: TRANEXAMIC ACID 1,000 MG/10 ML VIAL ONE (06:55)
[2018-12-17] MEDS ORDERED: HEPARIN SODIUM,PORCINE 10,000 UNIT/ML 1 ML VIAL ONE (06:55)
[2018-12-17] MEDS ORDERED: fentaNYL (PF) 50 MCG/ML 2 ML AMP ONE (06:55)
[2018-12-17] MEDS ORDERED: NALOXONE 0.4 MG/ML 1 ML VIAL IV PRN (07:04)
[2018-12-17] MEDS ORDERED: MAGNESIUM HYDROXIDE 2,400 MG/10 ML CUP PO PRN (07:04)
[2018-12-17] MEDS ORDERED: HYDROcodone/APAP 7.5-325MG 1 EACH TAB PO PRN (07:04)
[2018-12-17] MEDS ORDERED: HYDROmorphone 0.5 MG/0.5 ML SYRINGE IVP PRN ×2 (07:04)
[2018-12-17] MEDS ORDERED: DIAZEPAM 5 MG TAB PO PRN (07:04)
[2018-12-17] MEDS ORDERED: CLINDAMYCIN 1,800 MG in SODIUM CHLORIDE 0.9% IRRIGATIO 3,000 ML IRRIGATION ONE (07:04)
[2018-12-17] MEDS ORDERED: ONDANSETRON 4 MG/2 ML VIAL IVP PRN (07:04)
[2018-12-17] MEDS ORDERED: SODIUM CHLORIDE 0.9% 1,000 ML IV SCH (07:15)
[2018-12-17] MEDS ORDERED: LACTATED RINGERS 1,000 ML IV ONE ×2 (07:30→09:02)
--- NOTE | 2018-12-17 09:01 | P.OP ---
Date of Procedure: 12/17/18 Preoperative Diagnosis: Avascular necrosis left hip Postoperative Diagnosis: Avascular necrosis left hip Procedure(s) Performed: Left total hip arthroplasty with a direct anterior approach Implants: Dixon and nephew Polarstem size 6 standard Dixon [employer] Nephew R3, 3 hole acetabular shell, 56 mm Dixon [employer] Nephew reflection 6.5 mm cancellus screw, 25 mm 2 Dixon [employer] Nephew R3, XLPE 20 acetabular liner Dixon & Nephew Oxinium femoral head 36 m, +8 All components were press-fit. The articulation is Oxinium on polyethylene. Anesthesia: spinal Surgeon: Dario Jackson Lance Crewmember #1: Chey Navarro Estimated Blood Loss (ml): 350 (175 mL returned with Cell Saver) Pathology: other (Femoral head) Condition: stable Disposition: PACU Indications for Procedure: After failure of conservative treatment we discussed the surgical and nonsurgical treatment options at length. Patient wishes to proceed with a total hip arthroplasty with a direct anterior approach. Complications specific to this procedure were discussed at length, including but not limited to infection, leg length discrepancy, dislocation, and nerve injury. Patient is aware of all these complications and informed consent was obtained Operative Findings: The operative findings are consistent with avascular necrosis of the left hip. There was severe delamination of the articular cartilage from the femoral head. Description of Procedure: Patient was seen and evaluated in the preoperative area, consent was reviewed, and the surgical site was marked with a skin marker. Patient was then brought to the operating room and given prophylactic antibiotics intravenously. 1 g of Tranexamic acid was also given. A spinal anesthetic was administered by the anesthesia department. The patient was then placed on the [place] table with the bony prominences well-padded. The hip area was then prepped and draped in usual sterile fashion. A universal timeout was then performed, which confirmed the patient's name, surgical site, ALLERGIES, and procedure being performed. Next the incision site was located at 1 cm distal and 1 cm lateral to the anterior superior iliac spine. The skin and subcutaneous tissues were sharply incised. Incision was carefully dissected down to the fascia overlying the tensor fascia neeru muscle. This fascia was then incised in line with the incision. Next, using blunt finger dissection, the tensor fascia neeru muscle was dissected off its investing fascia. The muscle was then carefully retracted laterally with a cobra retractor over the lateral neck of the femur. Next, the circumflex vessels were identified and cauterized using the AquaMantis device. The anterior hip capsule was then exposed. The capsule was then opened and an inverted T fashion. Cobra retractors were then placed intracapsularly. The proximal femur was then visualized. The femoral neck was then osteotomized appropriate level above the lesser trochanter. Small amount of traction was placed with the [place] table. A small wedge of bone was then removed from the remaining femoral head. Next, using a corkscrew femoral head was easily removed from the acetabulum. On gross visual inspection, the femoral head had complete delamination of the articular cartilage consistent with avascular necrosis.. Attention was then turned to the acetabulum. the acetabulum was exposed and any remaining labrum was excised. Sequential reaming of the acetabulum was performed using fluoroscopic guidance. When the appropriate size was reached, a trial was then placed. The position and fit of the trial was checked with fluoroscopy. The trial was then removed. Then, using fluoroscopic guidance, the final implant was impacted at 20 of anteversion and 40 of abduction, and fully seated in the acetabulum. 2 screws were then placed in the acetabulum. Again fluoroscopy was used to check position of the screws. Next, the liner was then impacted, with a 20 elevated liner located in the anterior superior quadrant. Component locking was confirmed. Attention was then directed to the femur. With the aid of the [place] table, the femur was externally rotated to approximately 130, extended, and abducted under the opposite leg. A side hook was then placed under the proximal femur, and the side hook elevator was used to elevate the proximal femur. Retractors were then placed. A capsular release was performed, as well as a release of the conjoined tendon, which afforded excellent visualization of the proximal femur. Next, a box osteotome was used to lateralize the proximal femur. A shorthand teacher was then used to locate the femoral canal. Sequential broaching was then performed with appropriate size which afforded excellent fixation in the proximal femur. A trial was then placed with appropriate head and neck, and the hip was gently reduced with the aid of the [place] table. Fluoroscopy was then used to check position of the components, as well as to ensure equal leg lengths. The hip was then gently dislocated and the trials were then removed. Final implants were then impacted and the hip was again reduced. Final fluoroscopic x-rays confirmed that the components were in anatomic position, as well as equal leg lengths. The hip was also taken through range of motion, and found to be stable. The hip was then copiously irrigated with antibiotic solution with pulsatile lavage. The hip was then irrigated with Irrisept solution. The soft tissues were then injected with a ropivacaine solution, which consisted of 246.25 mg of ropivacaine, 0.5 mg of epinephrine, 30 mg of Toradol, 80 g of clonidine, and 48.45 mL of sterile water, for a total of 100 mL of fluid injected. A second dose of 1 g of Tranexamic acid was also given. the fascia was then closed with 2-0 strata fix suture. The subcutaneous tissue was closed with 3-0 Vicryl. The subcuticular tissue was closed with 3-0 strata fix suture. The skin was then closed with Dermabond glue and a sterile silver dressing. The patient was then transferred to the recovery room in stable condition. The foundation assistant CHARLY Ding was required due to the complexity of surgery, and the need for skilled operating room surgical technologist for positioning, draping, exposure, retraction, and closure of the wound.
--- NOTE | 2018-12-17 09:17 | XR ---
Limited left hip HISTORY: Anterior hip replacement 2 intraoperative C-arm images document the procedure.
--- NOTE | 2018-12-17 09:18 | FL ---
Fluoroscopy HISTORY: Anterior hip replacement 44 seconds fluoroscopy time supplied to the referring clinician. 2 intraoperative C-arm images docum ent the procedure. See dictated report from orthopedic surgery.
--- NOTE | 2018-12-17 09:45 | XR ---
EXAMINATION TYPE: XR Hip Limited LT DATE OF EXAM: 12/17/2018 COMPARISON: NONE HISTORY: 38-year-old male status post hip surgery, assess cervical alignment TECHNIQUE: Single AP view FINDINGS: Image shows placement of left total hip arthroplasty. Acetabular cup and femoral short stem component s of the prosthesis appear well seated without periprosthetic fracture. Soft tissue air related to re cent operation. Alignment grossly anatomic. IMPRESSION: Uncomplicated postoperative appearance left total hip arthroplasty.
[2018-12-17] MEDS: HYDROmorphone 1 MG/ML 1 ML SYRINGE IVP PRN ×2 (10:26→21:32)
[2018-12-17] MEDS: HYDROcodone/APAP 7.5-325MG 1 EACH TAB PO PRN ×2 (12:32→19:34)
[2018-12-17] MEDS: hydrOXYzine PAMOATE 25 MG CAP PO PRN ×2 (12:33→19:34)
[2018-12-17] MEDS: CLINDAMYCIN 900 MG in DEXTROSE 5% IN WATER 50 ML IVPB SCH ×2 (17:05)
--- NOTE | 2018-12-17 20:50 | CONS ---
CONSULTATION DATE OF CONSULTATION: December 17, 2018. REASON FOR CONSULTATION: Medical management requested by Dr. Jackson. CONSULTATION: This is a 38-year-old patient of Dr. Olguin whose chronic stable medical conditions include GERD, hypertension, and secondary osteoarthritis. The patient has undergone left total hip arthroplasty. The patient was very active, playing sports and may have got secondary osteoarthritis from the same. The patient did play basketball and baseball. Post procedure patient has some numbness around the joint. Did tolerate his breakfast. No nausea, no vomiting. Parents at the bedside. REVIEW OF SYSTEMS: CONSTITUTIONAL: None. HEENT: None. RESPIRATORY: None. CARDIOVASCULAR: None. GENITOURINARY: None. GASTROINTESTINAL: Heartburn. MUSCULOSKELETAL: Arthritic pain in the joints. DERMATOLOGICAL, HEMATOLOGIC, LYMPHATIC: none. PSYCHIATRY none. NEUROLOGICAL: Some numbness around the left hip. PAST MEDICAL HISTORY: Asthma as a child, GERD, hypertension, secondary osteoarthritis, low back pain. PAST SURGICAL HISTORY: Left ankle, right elbow surgery, laser eye surgery, colonoscopy, EGD. SOCIAL HISTORY: Patient smoked a pipe for close to 29 years, stopped in 2018. Lives with his parents. Currently not employed. 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 Alcohol occasionally. FAMILY HISTORY: Reviewed, DVT. HOME MEDICATIONS: 1. Percocet 10 1 tablet q.8 p.r.n. 2. Verapamil ER 240 mg a day. 3. Zantac 150 mg p.o. daily. 4. Aleve. 5. Cozaar 100 mg p.o. daily. 6. Advil. 7. Vitamin D3 5000 units p.o. daily. ALLERGIES: PENICILLIN. PHYSICAL EXAMINATION: VITAL SIGNS: Temperature 97.5, pulse 72, respiration 16, blood pressure 164/87, pulse ox 99 percent room air. Repeat blood pressure 139/89. GENERAL APPEARANCE: Well built, BMI 33.8. Sitting up, awake. EYES: Pupils equal. Conjunctivae normal. HEENT: External appearance of nose and ears normal. Oral cavity normal. NECK: JVD not raised. Mass not palpable. RESPIRATORY: Effort normal. LUNGS are clear. CARDIOVASCULAR: 1st and 2nd sounds normal. No edema. ABDOMEN: Soft, nontender. Liver and spleen not palpable. LYMPHATICS: No lymph nodes palpable in the neck and axilla. PSYCHIATRY: Alert and oriented x3. Mood and affect normal. NEUROLOGICAL: Pupils equal. Cranial nerves grossly intact. Power and sensation grossly intact. EXTREMITIES: Left hip with a dressing in place. INVESTIGATIONS: Blood work from December 13, 2018 shows a white count of 5.4, hemoglobin 15.8, potassium 4.4, creatinine 1.26. ASSESSMENT: 1. Left total hip arthroplasty. 2. Gastroesophageal reflux disease. 3. Essential hypertension. 4. Secondary osteoarthritis. 5. Creatinine of 1.26. PLAN: Continue current medication and treatment plan. The patient is getting Mobic and also getting aspirin. Also getting IV fluids. We will recheck patient's creatinine in the morning. The patient has been taking quite a bit of NSAIDs at home. Concern is to make sure there is no underlying chronic renal infection from the NSAIDs. Thank you Dr. Jackson. Copy to Dr. Olguin. MMALLYNL / BUDDY: [id number] /
[2018-12-17] MEDS ORDERED: SENNOSIDES-DOCUSATE SODIUM 1 EACH TAB PO SCH (21:00)
[2018-12-17] MEDS: ASPIRIN 325 MG TAB PO SCH (21:28)
[2018-12-18] MEDS: CLINDAMYCIN 900 MG in DEXTROSE 5% IN WATER 50 ML IVPB SCH ×2 (01:15)
[2018-12-18] MEDS: hydrOXYzine PAMOATE 25 MG CAP PO PRN ×2 (01:20→07:28)
[2018-12-18] MEDS: HYDROcodone/APAP 7.5-325MG 1 EACH TAB PO PRN ×2 (01:21→07:27)
[2018-12-18] MEDS: HYDROmorphone 1 MG/ML 1 ML SYRINGE IVP PRN (05:30)
[2018-12-18] MEDS: ASPIRIN 325 MG TAB PO SCH (07:28)
[2018-12-18] MEDS: LACTATED RINGERS 1,000 ML IV SCH (07:29)
[2018-12-18 08:10] LABS: Basophils % (A) 0 %; Eosinophils # (A) 0.1 k/uL (0-0.7); Eosinophils % (A) 1 %; HCT 38.5 % (39.0-53.0); Lymphocytes # (A) 2.6 k/uL (1.0-4.8); Lymphocytes % (A) 32 %; MCH 30.4 pg (25.0-35.0); MCHC 32.6 g/dL (31.0-37.0); MCV 93.3 fL (80.0-100.0); Monocytes # (A) 0.5 k/uL (0-1.0); Monocytes % (A) 6 %; Neutrophils # (A) 4.9 k/uL (1.3-7.7); Neutrophils % (A) 60 %; Platelet Count 174 k/uL (150-450); RBC 4.13 m/uL (4.30-5.90); RDW 13.7 % (11.5-15.5); WBC 8.1 k/uL (3.8-10.6)
[2018-12-18 08:14] LABS: HGB 12.6 gm/dL (13.0-17.5)
--- NOTE | 2018-12-18 08:34 | P.DS ---
Providers Date of admission: 12/17/18 05:43 Expected date of discharge: 12/18/18 Attending physician: Dario Jackson Consults: 12/17/18 07:04 Consult Physician Routine Consulting Provider: Ric Olguin Consult Reason/Comments: medical management Do you want consulting provider notified?: Yes 12/17/18 09:30 Consult Physician Routine Consulting Provider: Ace Armstrong Consult Reason/Comments: medical management Do you want consulting provider notified?: Yes Placement Type Exists?: Yes Primary care physician: Ric Olguin - Discharge Diagnosis(es) (1) Avascular necrosis of bone of left hip Current Visit: Yes Status: Acute (2) Status post total hip replacement, left Current Visit: Yes Status: Acute Hospital Course: This is a 38-year-old male with known history of avascular necrosis of the left hip. The patient presents for evaluation. After discussion and consideration patient elects to proceed with total hip arthroplasty. The patient is seen preoperatively by Dr. Jackson and medically cleared for surgery by their primary care physician. Patient is admitted to [facility] on 12/17/2018 for total hip arthroplasty. The procedures performed without complication or sequelae. The patient is doing well postoperatively. Labs and vital signs are stable on day of discharge. On day of discharge patient's hip incision is healing well. There is minimal erythema. There is no drainage noted at this time. There is minimal soft tissue swelling to the hip and thigh. Patient has full foot and ankle motion without difficulty or pain. Calf is soft and nontender to palpation. Neurovascular status to the left lower extremity is intact. Patient is discharged home in good condition. Opioid start talking form is reviewed and signed at patient bedside. Please see med rec for accurate list of home medications. Plan - Discharge Summary Discharge Rx Participant: Yes New Discharge Prescriptions: New Aspirin 325 mg PO BID #60 tab HYDROcodone/APAP 7.5-325MG [[place] 7.5-325] 1 - 2 tab PO Q6H PRN #56 tab PRN Reason: Pain Sennosides [Senokot] 1 tab PO BID #60 tablet No Action Ranitidine HCl 150 mg PO DAILY Losartan [Cozaar] 100 mg PO DAILY Ibuprofen [Advil] 400 mg PO BID Cholecalciferol [Vitamin D3] 5,000 unit PO DAILY Naproxen Sodium [Aleve] 220 mg PO DIRECTED PRN PRN Reason: Pain Verapamil HCl [Verapamil ER] 240 mg PO DAILY oxyCODONE-APAP 10-325MG [Percocet 10-325 mg] 1 tab PO Q8HR PRN PRN Reason: Pain Discharge Medication List Ranitidine HCl 150 mg PO DAILY 12/24/17 [History] Losartan [Cozaar] 100 mg PO DAILY 01/16/18 [History] Cholecalciferol [Vitamin D3] 5,000 unit PO DAILY 02/18/18 [History] Ibuprofen [Advil] 400 mg PO BID 02/18/18 [History] Naproxen Sodium [Aleve] 220 mg PO DIRECTED PRN 03/04/18 [History] Verapamil HCl [Verapamil ER] 240 mg PO DAILY 03/22/18 [History] oxyCODONE-APAP 10-325MG [Percocet 10-325 mg] 1 tab PO Q8HR PRN 12/09/18 [History] Aspirin 325 mg PO BID #60 tab 12/18/18 [Rx] HYDROcodone/APAP 7.5-325MG [[place] 7.5-325] 1 - 2 tab PO Q6H PRN #56 tab 12/18/18 [Rx] Sennosides [Senokot] 1 tab PO BID #60 tablet 12/18/18 [Rx] Follow up Appointment(s)/Referral(s): Dario Jackson DO [Doctor of Osteopathic Medicine] - 2 Weeks Activity/Diet/Wound Care/Special Instructions: Weightbearing as tolerated with walker. Leave dressing intact. Dressing may be removed by home care nurse or by patient in 10 days. May shower with dressing on. Please follow-up with [facility] in 2 weeks and call with any questions or concerns, . Discharge Disposition: HOME WITH HOME HEALTH SERVICES
[2018-12-18] MEDS ORDERED: VERAPAMIL SR 240 MG TABLET.ER PO SCH (09:00)
[2018-12-18] MEDS ORDERED: LOSARTAN 50 MG TAB PO SCH (09:00)
[2018-12-18] MEDS ORDERED: MELOXICAM 7.5 MG TAB PO SCH (09:00)
[2018-12-18 10:48] VITALS: BP 148/90; PULSE 91; TEMP 97.8
== END 2018-12-18 11:54 | disposition home health service (06) | DRG 470 ==
LOC: 2ORMAIN 05:43 → 4SSUR 09:01
PROVIDERS: ADMIT Orthopaedic Surgery; ATTEND Orthopaedic Surgery
PROC: 30233N0 Transfusion of Autologous Red Blood Cells into Peripheral Vein, Percutaneous Approach (ICD-10-PCS; 2018-12-17)
PROC: 0SRB06A Replacement of Left Hip Joint with Oxidized Zirconium on Polyethylene Synthetic Substitute, Uncemented, Open Approach (ICD-10-PCS; principal; 2018-12-17 07:00)
DX: M87.052 Idiopathic aseptic necrosis of left femur (principal); M19.90 Unspecified osteoarthritis, unspecified site; K21.9 Gastro-esophageal reflux disease without esophagitis; I10 Essential (primary) hypertension; Z79.899 Other long term (current) drug therapy; Z87.09 Personal history of other diseases of the respiratory system; Z87.891 Personal history of nicotine dependence; Z88.0 Allergy status to penicillin; Z82.49 Family history of ischemic heart disease and other diseases of the circulatory system; Z83.3 Family history of diabetes mellitus
CPT/HCPCS: 73501; 85025; 86850; 86891; 86900; 86901; 88305; 88311

== ENCOUNTER → 2019-02-28 | Outpatient (CLI) | payer OTHER ==
[2019-02-28 12:07] LABS: HCT 48.8 % (39.0-53.0); HGB 15.8 gm/dL (13.0-17.5); MCH 29.8 pg (25.0-35.0); MCHC 32.3 g/dL (31.0-37.0); MCV 92.2 fL (80.0-100.0); Mean Platelet Volume 7.8; Platelet Count 187 k/uL (150-450); RBC 5.29 m/uL (4.30-5.90); RDW 14.3 % (11.5-15.5); WBC 5.2 k/uL (3.8-10.6)
[2019-02-28 12:09] LABS: INR 0.9 (<1.2); Partial Thromboplastin Time 24.5 sec (22.0-30.0); Prothrombin Time 9.7 sec (9.0-12.0)
[2019-02-28 12:12] LABS: Albumin 4.2 g/dL (3.5-5.0); Calcium 9.6 mg/dL (8.4-10.2); Potassium 4.3 mmol/L (3.5-5.1); Total Bilirubin 0.5 mg/dL (0.2-1.3); Total Protein 6.7 g/dL (6.3-8.2)
[2019-02-28 17:36] LABS: Appearance,Urine Clear (Clear); Bilirubin,Urine Negative (Negative); Blood,Urine Negative (Negative); Color,Urine Light Yellow; Glucose,Urine (UA) Negative (Negative); Ketones,Urine Negative (Negative); Leukocyte Esterase,Urine Negative (Negative); Nitrite,Urine Negative (Negative); PH, Urine 6.5 (5.0-8.0); Protein,Urine Negative (Negative); Specific Gravity,Urine 1.022 (1.001-1.035); Urobilinogen,Urine <2.0 mg/dL (<2.0)
== END | disposition home or self-care (01) ==
LOC: LABPAT 10:54
PROVIDERS: ATTEND Orthopaedic Surgery
DX: Z01.818 Encounter for other preprocedural examination (principal); Z01.812 Encounter for preprocedural laboratory examination
CPT/HCPCS: 80053; 81003; 85027; 85610; 85730; 87070

== ENCOUNTER 2019-03-04 05:42 | Inpatient (IN) | payer OTHER ==
[2019-02-26 09:51] VITALS: BMI 33.4
[~2019-03-04 05:42] MED LIST changes: -MIDAZOLAM (PF) 2 MG/2 ML VIAL IV PRN; +MIDAZOLAM 2 MG/2 ML VIAL IV PRN
[2019-03-04] MEDS ORDERED: ROPIVACAINE 246.25 MG, EPINEPHrine 0.5 MG, KETOROLAC 30 MG, WATER FOR INJECTION,STERILE... MISCELLANE ONE ×4 (05:51)
[2019-03-04] MEDS: LACTATED RINGERS 1,000 ML IV SCH (06:25)
[2019-03-04] MEDS ORDERED: TRANEXAMIC ACID 1,000 MG/10 ML VIAL ONE (06:53)
[2019-03-04] MEDS ORDERED: LACTATED RINGERS 1,000 ML BAG IV ONE (06:53)
[2019-03-04] MEDS ORDERED: fentaNYL (PF) 50 MCG/ML 2 ML AMP ONE (06:53)
[2019-03-04] MEDS ORDERED: SODIUM CHLORIDE 0.9% 100 ML BAG ONE (06:53)
[2019-03-04] MEDS ORDERED: LIDOCAINE 1% INJ 10MG/ML (20 ML MDV) ONE (06:53)
[2019-03-04] MEDS ORDERED: MIDAZOLAM 2 MG/2 ML VIAL ONE (06:53)
[2019-03-04] MEDS ORDERED: ePHEDrine SULFATE/0.9% NACL/PF 50 MG/5 ML SYRINGE IV ONE (06:53)
[2019-03-04] MEDS ORDERED: PROPOFOL 10 MG/ML 20 ML VIAL IV ONE (06:53)
[2019-03-04] MEDS ORDERED: HEPARIN SODIUM,PORCINE 10,000 UNIT/ML 1 ML VIAL ONE (06:53)
[2019-03-04] MEDS ORDERED: PHENYLEPHRINE-0.9% NACL SYG 1 MG/10 ML SYRINGE ONE (06:53)
[2019-03-04] MEDS ORDERED: ceFAZolin 3,000 MG in SODIUM CHLORIDE 0.9% IRRIGATIO 3,000 ML IRRIGATION ONE (07:31)
[2019-03-04] MEDS ORDERED: LACTATED RINGERS 1,000 ML IV ONE (08:24)
--- NOTE | 2019-03-04 08:32 | P.OP ---
Date of Procedure: 03/04/19 Preoperative Diagnosis: Avascular necrosis right hip Postoperative Diagnosis: Avascular necrosis right hip Procedure(s) Performed: Right total hip arthroplasty with a direct anterior approach Implants: Dixon and nephew Polarstem size 6 standard Dixon & Nephew R3, 3 hole acetabular shell, 56 mm Dixon [employer] Nephew reflection 6.5 mm cancellus screw, 20 mm 2 Dixon [employer] Nephew R3, XLPE 20 acetabular liner Dixon & Nephew Oxinium femoral head 36 m, +8 All components were press-fit. The articulation is Oxinium on polyethylene. Anesthesia: spinal Surgeon: Dario Jackson Filler Shredder #1: Chey Navarro Estimated Blood Loss (ml): 300 (134 mL returned with Cell Saver) Pathology: other (Femoral head) Condition: stable Disposition: PACU Indications for Procedure: After failure of conservative treatment we discussed the surgical and nonsurgical treatment options at length. Patient wishes to proceed with a total hip arthroplasty with a direct anterior approach. Complications specific to this procedure were discussed at length, including but not limited to infection, leg length discrepancy, dislocation, and nerve injury. Patient is aware of all these complications and informed consent was obtained Operative Findings: The operative findings are consistent with severe avascular necrosis of the right hip Description of Procedure: Patient was seen and evaluated in the preoperative area, consent was reviewed, and the surgical site was marked with a skin marker. Patient was then brought to the operating room and given prophylactic antibiotics intravenously. 1 g of Tranexamic acid was also given. A spinal anesthetic was administered by the anesthesia department. The patient was then placed on the Harvey table with the bony prominences well-padded. The hip area was then prepped and draped in usual sterile fashion. A universal timeout was then performed, which confirmed the patient's name, surgical site, ALLERGIES, and procedure being performed. Next the incision site was located at 1 cm distal and 1 cm lateral to the anterior superior iliac spine. The skin and subcutaneous tissues were sharply incised. Incision was carefully dissected down to the fascia overlying the tensor fascia neeru muscle. This fascia was then incised in line with the incision. Next, using blunt finger dissection, the tensor fascia neeru muscle was dissected off its investing fascia. The muscle was then carefully retracted laterally with a cobra retractor over the lateral neck of the femur. Next, the circumflex vessels were identified and cauterized using the AquaMantis device. The anterior hip capsule was then exposed. The capsule was then opened and an inverted T fashion. Cobra retractors were then placed intracapsularly. The proximal femur was then v isualized. The femoral neck was then osteotomized appropriate level above the lesser trochanter. Small amount of traction was placed with the Harvey table. A small wedge of bone was then removed from the remaining femoral head. Next, using a corkscrew femoral head was easily removed from the acetabulum. On gross visual inspection, the femoral head had extensive areas of avascular necrosis with delamination of the cartilage. Attention was then turned to the acetabulum. the acetabulum was exposed and any remaining labrum was excised. Sequential reaming of the acetabulum was performed using fluoroscopic guidance. When the appropriate size was reached, a trial was then placed. The position and fit of the trial was checked with fluoroscopy. The trial was then removed. Then, using fluoroscopic guidance, the final implant was impacted at 20 of anteversion and 40 of abduction, and fully seated in the acetabulum. 2 screws were then placed in the acetabulum. Again fluoroscopy was used to check position of the screws. Next, the liner was then impacted, with a 20 elevated liner located in the anterior superior quadrant. Component locking was confirmed. Attention was then directed to the femur. With the aid of the Harvey table, the femur was externally rotated to approximately 130, extended, and abducted under the opposite leg. A side hook was then placed under the proximal femur, and the side hook elevator was used to elevate the proximal femur. Retractors were then placed. A capsular release was performed, as well as a release of the conjoined tendon, which afforded excellent visualization of the proximal femur. Next, a box osteotome was used to lateralize the proximal femur. A edge bander hand was then used to locate the femoral canal. Sequential broaching was then performed with appropriate size which afforded excellent fixation in the proximal femur. A trial was then placed with appropriate head and neck, and the hip was gently reduced with the aid of the Harvey table. Fluoroscopy was then used to check position of the components, as well as to ensure equal leg lengths. The hip was then gently dislocated and the trials were then removed. Final implants were then impacted and the hip was again reduced. Final fluoroscopic x-rays confirmed that the components were in anatomic position, as well as equal leg lengths. The hip was also taken through range of motion, and found to be stable. The hip was then copiously irrigated with antibiotic solution with pulsatile lavage. The hip was then irrigated with Irrisept solution. The soft tissues were then injected with a ropivacaine solution, which consisted of 246.25 mg of ropivacaine, 0.5 mg of epinephrine, 30 mg of Toradol, 80 g of clonidine, and 48.45 mL of sterile water, for a total of 100 mL of fluid injected. A second dose of 1 g of Tranexamic acid was also given. the fascia was then closed with 2-0 strata fix suture. The subcutaneous tissue was closed with 3-0 Vicryl. The subcuticular tissue was closed with 3-0 strata fix suture. The skin was then closed with Dermabond glue and a sterile silver dressing. The patient was then transferred to the recovery room in stable condi tion. The assistant professor in family studies CHARLY Ding was required due to the complexity of surgery, and the need for skilled rn surgical pcu for positioning, draping, exposure, retraction, and closure of the wound.
[2019-03-04] MEDS ORDERED: MAGNESIUM HYDROXIDE 2,400 MG/10 ML CUP PO PRN (08:47)
[2019-03-04] MEDS ORDERED: NALOXONE 0.4 MG/ML 1 ML VIAL IV PRN (08:47)
[2019-03-04] MEDS ORDERED: hydrOXYzine PAMOATE 25 MG CAP PO PRN (08:47)
[2019-03-04] MEDS ORDERED: ONDANSETRON 4 MG/2 ML VIAL IVP PRN (08:47)
[2019-03-04] MEDS ORDERED: HYDROcodone/APAP 7.5-325MG 1 EACH TAB PO PRN (08:47)
[2019-03-04] MEDS ORDERED: HYDROmorphone 0.5 MG/0.5 ML SYRINGE IVP PRN ×2 (08:47)
--- NOTE | 2019-03-04 08:48 | XR ---
EXAMINATION TYPE: XR Hip Limited RT, FL guidance operating room DATE OF EXAM: 03/04/2019 CLINICAL HISTORY: Fluoroscopy of a right anterior hip arthroplasty. TECHNIQUE: Fluoroscopy. COMPARISON: None. FINDINGS: Fluoroscopic guidance was provided during procedure performed by Dr. Jackson A total of 3 6 seconds of fluoroscopic time was utilized during the procedure and 2 spot images was acquired dalein g a right hip arthroplasty. IMPRESSION: As Above.
--- NOTE | 2019-03-04 09:25 | XR ---
EXAMINATION TYPE: XR Hip Limited RT DATE OF EXAM: 03/04/2019 CLINICAL HISTORY: Right hip pain and osteoarthritis. TECHNIQUE: Single AP portable view of right hip is obtained immediately postoperatively. COMPARISON: None. FINDINGS: Metallic hardware from right hip arthroplasty is seen and appears satisfactory in alignment and position. There is evidence of recent surgery with subcutaneous gas and soft tissue swelling no radhika laterally. IMPRESSION: Metallic hardware from right hip arthroplasty is satisfactory in position.
[2019-03-04] MEDS: HYDROcodone/APAP 7.5-325MG 1 EACH TAB PO PRN ×2 (10:29→17:44)
[2019-03-04] MEDS: HYDROmorphone 1 MG/ML 1 ML SYRINGE IVP PRN ×3 (10:30→22:26)
[2019-03-04] MEDS: SODIUM CHLORIDE 0.9% 1,000 ML IV SCH ×2 (14:26→23:31)
[2019-03-04] MEDS ORDERED: KETOROLAC 30 MG/ML 1 ML VIAL IVP PRN (14:32)
[2019-03-04] MEDS ORDERED: FAMOTIDINE 20 MG TAB PO PRN (16:05)
[2019-03-04] MEDS ORDERED: IPRATROPIUM-ALBUTEROL 3 ML NEB INHALATION PRN (16:17)
--- NOTE | 2019-03-04 16:30 | P.CONS ---
History of Present Illness - Reason for Consult Consult date: 03/04/19 Medical management of asthma, gastroesophageal reflux disease, hypertension Requesting physician: Dario Jackson - Chief Complaint Osteoarthritis right hip, status post repair - History of Present Illness This is a 38-year-old gentleman with significant osteoarthritis, avascular necrosis of the right hip that failed outpatient conservative treatment, admitted for elective status repair in a patient with history of recent left hip repair, gastroesophageal reflux disease, hypertension, asthma and multiple other medical issues. Underwent total right hip arthroplasty, tolerated procedure well. Positive pain.VSS. Denies chest pain, palpitations or shortness of breath. Denies lightheadedness dizziness or focal deficits. Review of Systems ROS Statement: Those systems with pertinent positive or pertinent negative responses have been documented in the HPI. ROS Other: All systems not noted in ROS Statement are negative. Past Medical History Past Medical History: Asthma, GERD/Reflux, Hypertension, Musculoskeletal Disorder, Osteoarthritis (OA) Additional Past Medical History / Comment(s): low back pain & left thigh numb. ASTHMA CHILD. History of Any Multi-Drug Resistant Organisms: None Reported Past Surgical History: Orthopedic Surgery Additional Past Surgical History / Comment(s): LT ankle, RT elbow surg., laser eye surg. Colonoscopy; EGD. PAIN PROC Past Anesthesia/Blood Transfusion Reactions: No Reported Reaction Smoking Status: Former smoker Additional Past Alcohol Use History / Comment(s): quit smoking 10/2017; smoked 1ppd since age of 8 - Past Family History Father Family Medical History: Deep Vein Thrombosis (DVT) Brother(s) Family Medical History: Cancer Medications and Allergies Home Medications Medication Instructions Recorded Confirmed Type Ranitidine HCl 150 mg PO DAILY PRN 12/24/17 03/04/19 History Losartan [Cozaar] 50 mg PO DAILY 01/16/18 03/04/19 History HYDROcodone/APAP 7.5-325MG [[place] 1 - 2 tab PO Q6H PRN #56 tab 12/18/18 03/04/19 Rx 7.5-325] Hydrochlorothiazide 25 mg PO DAILY 03/04/19 03/04/19 History Metoprolol Succinate [Toprol XL] 25 mg PO BID 03/04/19 03/04/19 History Allergies Allergy/AdvReac Type Severity Reaction Status Date / Time Penicillins Allergy Anaphylaxis Verified 03/04/19 09:05 Physical Exam Vitals: Vital Signs Temp Pulse Resp BP Pulse Ox 03/04/19 09:35 95 03/04/19 09:16 79 16 108/56 97 03/04/19 09:01 81 16 103/56 98 03/04/19 08:44 96.8 F L 83 18 102/65 96 03/04/19 06:19 97.9 F 89 16 138/84 97 Intake and Output 03/03/19 03/04/19 03/04/19 22:59 06:59 14:59 Intake Total 1056 201 Output Total 300 Balance 1056 -99 Intake: IV 1056 201 Output: Estimated Blood Loss 300 Other: Weight 131.496 kg PHYSICAL EXAM: VITAL SIGNS: As above GENERAL: Sitting up in bed, no acute distress HEENT: Conjunctivae normal. eyes normal. NECK: No JVD. No thyroid enlargement. No LNs CARDIOVASCULAR: S1, S2 muffled. No murmur RESPIRATION: Breath sounds diminished in the bases. No rhonchi or crackles. No bronchial breathing. ABDOMEN: Soft, nontender . No guarding. no masses palpable. No ascites, No hepatosplenomegaly.Bowel sounds heard. LEGS: No edema. no swelling . Right hip status post surgery: Deferred to orthopedics PSYCHIATRY: Alert and oriented -3, mood and affect normal. NERVOUS SYSTEM: Cranial N 2-12 grossly normal. Moves all 4 limbs. Diffuse weakness No focal deficits. Skin: no ulcer no rash Joints: No active swelling. No inflammation. Lymphatic system. No LN neck axilla or groin. Results Results: -Avascular necrosis right hip status post right total hip arthroplasty -Osteoarthritis -Hypertension -Asthma, chronic, type unknown ,stable -Gastroesophageal reflux disease -Former nicotine dependence, extensive history- smoked 1 pack a day since age of 8; quit smoking October 2017 Plan: Continue on current medication regime ,monitoring and symptomatic treatment.VSS, was slowly reintroduce antihypertensives-beta twan resumed. GI prophylaxis in place. Pain management and anticoagulation as per primary. Further recommendations to follow. Thank you Dr. Jackson for allowing us to participate in the care of this pleasant gentleman. The impression and plan of care has been dictated as directed. : I performed a history and examination of this patient, discussed the same with the dictator. I agree with the dictator's note ,documented as a scribe. Any additional findings or plans will be noted.
[2019-03-04] MEDS: CLINDAMYCIN 900 MG in DEXTROSE 5% IN WATER 50 ML IVPB SCH ×2 (17:43)
[2019-03-04] MEDS: PANTOPRAZOLE 40 MG/10 ML VIAL IVP SCH (17:44)
[2019-03-04] MEDS: IPRATROPIUM-ALBUTEROL 3 ML NEB INHALATION SCH ×2 (19:03→19:08)
[2019-03-04] MEDS: SYMBICORT 160-4.5 MCG INHALER INHALATION SCH ×2 (19:03→19:06)
[2019-03-04] MEDS: ASPIRIN 325 MG TAB PO SCH (20:28)
[2019-03-04] MEDS: METOPROLOL SUCCINATE (ER) 25 MG TAB.ER.24H PO SCH (20:28)
[2019-03-04] MEDS ORDERED: SENNOSIDES-DOCUSATE SODIUM 1 EACH TAB PO SCH (21:00)
[2019-03-05] MEDS: HYDROcodone/APAP 7.5-325MG 1 EACH TAB PO PRN ×2 (01:16→08:33)
[2019-03-05] MEDS: CLINDAMYCIN 900 MG in DEXTROSE 5% IN WATER 50 ML IVPB SCH ×2 (01:17)
[2019-03-05] MEDS: LACTATED RINGERS 1,000 ML IV SCH (05:38)
[2019-03-05] MEDS: HYDROmorphone 1 MG/ML 1 ML SYRINGE IVP PRN (05:39)
[2019-03-05 07:32] LABS: Basophils % (A) 0 %; Calcium 8.7 mg/dL (8.4-10.2); Eosinophils # (A) 0.1 k/uL (0-0.7); Eosinophils % (A) 1 %; HCT 36.9 % (39.0-53.0); Lymphocytes % (A) 25 %; MCH 30.6 pg (25.0-35.0); MCHC 32.8 g/dL (31.0-37.0); MCV 93.3 fL (80.0-100.0); Mean Platelet Volume 8.5; Monocytes # (A) 0.5 k/uL (0-1.0); Monocytes % (A) 6 %; Neutrophils # (A) 5.2 k/uL (1.3-7.7); Neutrophils % (A) 66 %; Platelet Count 155 k/uL (150-450); Potassium 4.3 mmol/L (3.5-5.1); RBC 3.96 m/uL (4.30-5.90); RDW 14.2 % (11.5-15.5); WBC 7.8 k/uL (3.8-10.6)
[2019-03-05 07:48] LABS: HGB 12.1 gm/dL (13.0-17.5)
[2019-03-05] MEDS: METOPROLOL SUCCINATE (ER) 25 MG TAB.ER.24H PO SCH (08:34)
[2019-03-05] MEDS: ASPIRIN 325 MG TAB PO SCH (08:34)
[2019-03-05] MEDS: PANTOPRAZOLE 40 MG/10 ML VIAL IVP SCH (08:34)
[2019-03-05 08:45] VITALS: BP 105/67; PULSE 83; RESP 12; TEMP 98
--- NOTE | 2019-03-05 08:55 | P.DS ---
Providers Date of admission: 03/04/19 05:42 Expected date of discharge: 03/05/19 Attending physician: Dario Jackson Consults: 03/04/19 08:47 Consult Physician Routine Consulting Provider: Valentino Vail Jr Consult Reason/Comments: medical management Do you want consulting provider notified?: Yes Primary care physician: Valentino Vail - Discharge Diagnosis(es) (1) Osteoarthritis of right hip Current Visit: Yes Status: Acute (2) Status post total hip replacement, right Current Visit: Yes Status: Acute Hospital Course: This is a 38-year-old male with known history of avascular necrosis of the right hip. The patient presents for evaluation. After discussion and consideration patient elects to proceed with total hip arthroplasty. The patient is seen preoperatively by Dr. Jackson and medically cleared for surgery by their primary care physician. Patient is admitted to [facility] on 03/04/2019 for total hip arthroplasty. The procedures performed without complication or sequelae. The patient is doing well postoperatively. Labs and vital signs are stable on day of discharge. On day of discharge patient's hip incision is healing well. There is minimal erythema. There is no drainage noted at this time. There is minimal soft tissue swelling to the hip and thigh. Patient has full foot and ankle motion without difficulty or pain. Calf is soft and nontender to palpation. Neurovascular status to the right lower extremity is intact. Patient is discharged home in good condition. Opioid start talking form is reviewed and signed at patient bedside. Please see med rec for accurate list of home medications. Plan - Discharge Summary Discharge Rx Participant: Yes New Discharge Prescriptions: New Aspirin 325 mg PO BID #60 tab HYDROcodone/APAP 7.5-325MG [[place] 7.5-325] 1 - 2 tab PO Q6H PRN #56 tab PRN Reason: Pain Sennosides [Senokot] 1 tab PO BID #60 tablet Ketorolac [Toradol] 10 mg PO Q6HR #12 tab No Action Ranitidine HCl 150 mg PO DAILY PRN PRN Reason: Heartburn Losartan [Cozaar] 50 mg PO DAILY HYDROcodone/APAP 7.5-325MG [[place] 7.5-325] 1 - 2 tab PO Q6H PRN #56 tab PRN Reason: Pain Metoprolol Succinate [Toprol XL] 25 mg PO BID Hydrochlorothiazide 25 mg PO DAILY Discharge Medication List Ranitidine HCl 150 mg PO DAILY PRN 12/24/17 [History] Losartan [Cozaar] 50 mg PO DAILY 01/16/18 [History] HYDROcodone/APAP 7.5-325MG [[place] 7.5-325] 1 - 2 tab PO Q6H PRN #56 tab 12/18/18 [Rx] Hydrochlorothiazide 25 mg PO DAILY 03/04/19 [History] Metoprolol Succinate [Toprol XL] 25 mg PO BID 03/04/19 [History] Aspirin 325 mg PO BID #60 tab 03/05/19 [Rx] HYDROcodone/APAP 7.5-325MG [[place] 7.5-325] 1 - 2 tab PO Q6H PRN #56 tab 03/05/19 [Rx] Ketorolac [Toradol] 10 mg PO Q6HR #12 tab 03/05/19 [Rx] Sennosides [Senokot] 1 tab PO BID #60 tablet 03/05/19 [Rx] Follow up Appointment(s)/Referral(s): [facility], [NON-STAFF] - Dario Jackson DO [Doctor of Osteopathic Medicine] - 2 Weeks Activity/Diet/Wound Care/Special Instructions: Weightbearing as tolerated with walker. Leave dressing intact. Dressing may be removed by home care nurse or by patient in 10 days. May shower with dressing on. Please follow-up with [facility] in 2 weeks and call with any questions or concerns, . Discharge Disposition: HOME WITH HOME HEALTH SERVICES
[2019-03-05] MEDS: SYMBICORT 160-4.5 MCG INHALER INHALATION SCH (09:00)
[2019-03-05] MEDS: IPRATROPIUM-ALBUTEROL 3 ML NEB INHALATION SCH ×2 (09:00→12:24)
[2019-03-05] MEDS ORDERED: MELOXICAM 7.5 MG TAB PO SCH (09:00)
--- NOTE | 2019-03-05 17:30 | P.PN ---
Subjective Progress Note Date: 03/05/19 This is a 38-year-old gentleman with significant osteoarthritis, avascular necrosis of the right hip that failed outpatient conservative treatment, admitted for elective status repair in a patient with history of recent left hip repair, gastroesophageal reflux disease, hypertension, asthma and multiple other medical issues. Underwent total right hip arthroplasty, tolerated procedure well. Positive pain.VSS. Denies chest pain, palpitations or shortness of breath. Denies lightheadedness dizziness or focal deficits. Significant clinical improvement. Ambulating, pain management/pain control improved. Passing flatus, no bowel movement. Good diet intake with no nausea vomiting or diarrhea. Denies chest pain, palpitations or increasing shortness of breath. Denies lightheadedness or dizziness or focal deficits. Hydrochlorothiazide on hold, creatinine at baseline 1.25, systolic blood pressures running low 100s to 110s.anticipating discharge home today as per orthopedic surgery. Objective - Vital Signs Vital signs: Vital Signs Temp 98 F 03/05/19 07:00 Pulse 83 03/05/19 07:00 Resp 12 03/05/19 07:00 BP 105/67 03/05/19 07:00 Pulse Ox 97 03/05/19 07:00 Intake & Output 03/04/19 03/05/19 03/05/19 18:59 06:59 18:59 Intake Total 201 250 Output Total 300 Balance -99 250 Intake: IV 201 Oral 250 Output: Estimated Blood Loss 300 Other: Voiding Method Toilet Urinal # Voids 1 2 - Exam PHYSICAL EXAM: VITAL SIGNS: As above GENERAL: Sitting up at bedside, no acute distress HEENT: Conjunctivae normal. eyes normal. Oral mucosa moist NECK: No JVD. No thyroid enlargement. No LNs CARDIOVASCULAR: S1, S2 regular. No murmur RESPIRATION: Breath sounds diminished in the bases. No rhonchi or crackles ABDOMEN: Soft, nontender . No guarding. no masses palpable. Bowel sounds heard. SKIN: Status post surgery; Mild edema of right hip and thigh. PSYCHIATRY: Alert and oriented -3, mood and affect normal. NERVOUS SYSTEM: Cranial N 2-12 grossly normal. Moves all 4 limbs. No focal deficits. No sensory deficit. - Labs CBC & Chem 7: 03/05/19 07:08 03/05/19 07:08 Labs: Abnormal Lab Results - Last 24 Hours (Table) 03/05/19 03/05/19 Range/Units 07:08 07:08 RBC 3.96 L (4.30-5.90) m/uL Hgb 12.1 L D (13.0-17.5) gm/dL Hct 36.9 L (39.0-53.0) % BUN 24 H (9-20) mg/dL Glucose 106 H (74-99) mg/dL Assessment and Plan Assessment: -Avascular necrosis right hip status post right total hip arthroplasty -Osteoarthritis -Hypertension -Asthma, childhood with no reoccurrence in adulthood -Gastroesophageal reflux disease -Former nicotine dependence, extensive history- smoked 1 pack a day since age of 8; quit smoking October 2017 Plan: Continue on current medication regime ,monitoring and symptomatic treatment. Hydrochlorothiazide maintained on hold, creatinine at baseline 1.25(1.26 in December 2018), systolic blood pressures running in the low 100s to 110s. Patient has been advised to maintain log of a.m. blood pressures and take to follow-up visit with PCP for further recommendations. Maintain aggressive pulmonary toileting with incentive spirometer every hour 10 while awake 2 weeks outpatient. Patient states asthma-type childhood- none as an adult .Pain management/anticoagulation as per primary. CBC, BMP in 3 days. Follow-up with PCP within one week. Patient is being discharged home today as per orthopedic surgery. The impression and plan of care has been dictated as directed. : I performed a history and examination of this patient, discussed the same with the dictator. I agree with the dictator's note ,documented as a scribe. Any additional findings or plans will be noted.
== END 2019-03-05 12:42 | disposition home health service (06) | DRG 470 ==
LOC: 2ORMAIN 05:42 → 4SSUR 08:48
PROVIDERS: ADMIT Orthopaedic Surgery; ATTEND Orthopaedic Surgery
PROC: 30233N0 Transfusion of Autologous Red Blood Cells into Peripheral Vein, Percutaneous Approach (ICD-10-PCS; 2019-03-04)
PROC: 0SR906A Replacement of Right Hip Joint with Oxidized Zirconium on Polyethylene Synthetic Substitute, Uncemented, Open Approach (ICD-10-PCS; principal; 2019-03-04 07:00)
DX: M16.11 Unilateral primary osteoarthritis, right hip (principal); M87.9 Osteonecrosis, unspecified; I10 Essential (primary) hypertension; J45.909 Unspecified asthma, uncomplicated; K21.9 Gastro-esophageal reflux disease without esophagitis; Z79.899 Other long term (current) drug therapy; Z87.891 Personal history of nicotine dependence; Z88.0 Allergy status to penicillin; Z83.3 Family history of diabetes mellitus; Z80.9 Family history of malignant neoplasm, unspecified; Z82.49 Family history of ischemic heart disease and other diseases of the circulatory system
CPT/HCPCS: 73501; 80048; 85025; 86850; 86891; 86900; 86901; 88305; 88311

== ENCOUNTER → 2019-05-09 | Outpatient (CLI) | payer OTHER ==
--- NOTE | 2019-05-11 21:50 | US ---
EXAMINATION TYPE: US kidneys/renal and bladder DATE OF EXAM: 05/09/2019 COMPARISON: None CLINICAL HISTORY: 38-year-old male I10 Hypertension. TECHNIQUE: Multiple sonographic images of the kidneys and bladder are obtained. FINDINGS: EXAM MEASUREMENTS: Right Kidney: 12.8 x 5.9 x 7.5 cm Left Kidney: 12.4 x 5.8 x 5.3 cm No hydronephrosis on either side. Bladder: wnl Bilateral Jets seen: Yes IMPRESSION: No hydronephrosis.
== END | disposition home or self-care (01) ==
LOC: RADUSWWP 16:02
PROVIDERS: ATTEND Family Medicine
DX: I10 Essential (primary) hypertension (principal); Z88.0 Allergy status to penicillin
CPT/HCPCS: 76770

== ENCOUNTER → 2019-05-14 | Outpatient (CLI) | payer OTHER | END | disposition home or self-care (01) | LOC: LABWHC1 12:08 | PROVIDERS: ATTEND Family Medicine | DX: I10 Essential (primary) hypertension (principal) | CPT/HCPCS: 36415; 82384 ==

== ENCOUNTER → 2019-05-27 | Outpatient (CLI) | payer OTHER ==
--- NOTE | 2019-05-27 11:57 | US ---
EXAMINATION TYPE: US renal artery duplex complete DATE OF EXAM: 05/27/2019 COMPARISON: NONE CLINICAL HISTORY: I10 HTN. MEASUREMENTS: RENAL SIZE: Rt Kidney: 12.3 x 5.5 x 5.3cm Lt Kidney: 12.1 x 4.8 x 5.2cm RESISTANCE INDEX Right: 0.45 Left: 0.52 RA/AO RATIO (< 3.5 ) Right: 2.1 Left: 2.1 RA VELOCITY ( < 180 cm/s) Right: 162 Left: 162 No evidence of renal artery stenosis. Left renal mass measuring 0.9 x 0.7 x 1.0cm, this shows interna l echoes and no enhancement so does not have a typical cystic appearance. IMPRESSION: 1. No sonographic evidence of renal arterial stenosis of either kidney. 2. There is a 1.0 cm solid appearing small left renal mass for which further evaluation with three-ph ase CT abdomen is recommended.
== END | disposition home or self-care (01) ==
LOC: RADUSWWP 08:54
PROVIDERS: ATTEND Family Medicine
DX: N28.89 Other specified disorders of kidney and ureter (principal); I10 Essential (primary) hypertension; Z88.0 Allergy status to penicillin
CPT/HCPCS: 93975

== ENCOUNTER → 2019-06-13 | Outpatient (CLI) | payer OTHER ==
--- NOTE | 2019-06-13 12:57 | CT ---
EXAMINATION TYPE: CT abdomen wo/w con DATE OF EXAM: 06/13/2019 COMPARISON: INDICATION: Renal Mass DLP: 2051.2 mGycm, Automated exposure control for dose reduction was used. CONTRAST: 100 mL of Isovue 300. Study performed with Oral Contrast TECHNIQUE: Axial images were obtained from above the diaphragm to the iliac crests in the axial plane at 5 mm thick sections. Reconstructed images are reviewed on the computer in the coronal plane. FINDINGS: Limited CT sections are obtained the lung bases. The lung bases are clear. CT ABDOMEN: Liver: Normal Spleen: Normal Pancreas: Normal Adrenal glands: The adrenal glands are normal. Gallbladder: Normal Kidneys: Attention is paid to the bilateral kidneys. Pre and postcontrast imaging is performed. Delay ed imaging is performed. No masses are evident. There is a 0.9 cm hypodensity measuring 49 Hounsfield units. This could be a small solid lesion. Series 6 image 34. No cysts are present. Significant enh ancement is not evident. Aorta: Normal Inferior vena cava: Normal. IMPRESSIONS: 1. Complex cyst or solid lesion within the posterior lateral left kidney. If additional imaging woul d be of benefit, MRI with contrast could be performed. Otherwise, short-term follow-up ultrasound in 3 months to evaluate for interval change would be recommended. Neoplasm is not excluded on the basis of this examination.
== END ==
LOC: RADCTMAIN 06:42
PROVIDERS: ATTEND Family Medicine
DX: N28.89 Other specified disorders of kidney and ureter (principal); Z88.0 Allergy status to penicillin
CPT/HCPCS: 74170; Q9967

== ENCOUNTER → 2019-07-12 | Outpatient (CLI) | payer OTHER | END | disposition home or self-care (01) | LOC: RADMRIMAIN 07:32 | PROVIDERS: ATTEND Family Medicine | DX: Z53.9 Procedure and treatment not carried out, unspecified reason (principal) ==

== ENCOUNTER → 2019-09-26 | Outpatient (CLI) | payer OTHER ==
[2019-09-26 23:40] LABS: African American GFR (CKD) 78.5 (60.0-200.0); Anion Gap 6.7 mmol/L (4.00-12.00); BUN/Creat Ratio 13.08 Ratio (12.00-20.00); Calcium 9.3 mg/dL (8.7-10.3); Carbon Dioxide 29.3 mmol/L (21.6-31.8); Non-African American GFR(CKD) 67.8 (60.0-200.0); Potassium 4.4 mmol/L (3.5-5.5)
== END | disposition home or self-care (01) ==
LOC: LABWHC1 15:59
PROVIDERS: ATTEND Family Medicine
DX: I10 Essential (primary) hypertension (principal)
CPT/HCPCS: 36415; 80048; 82088; 84244

== ENCOUNTER → 2020-02-24 | Outpatient (CLI) | payer OTHER ==
--- NOTE | 2020-02-24 13:14 | US ---
EXAMINATION TYPE: US venous doppler duplex LE RT DATE OF EXAM: 02/24/2020 1:03 PM COMPARISON: NONE CLINICAL HISTORY: M79.604 Pain in Right leg. Edema and bruising right lower leg for 1 week, Patient f elt a pop SIDE PERFORMED: Right TECHNIQUE: The lower extremity deep venous system is examined utilizing real time linear array sonog ruba with graded compression, doppler sonography and color-flow sonography. VESSELS IMAGED: External Iliac Vein (EIV) Common Femoral Vein Deep Femoral Vein Greater Saphenous Vein * Femoral Vein Popliteal Vein Small Saphenous Vein * Proximal Calf Veins (* superficial vessels) Right Leg: No evidence of DVT. complex fluid collection right lower leg, extending from upper calf t o mid calf = 12.9 x 2.3 x 6.6cm IMPRESSION: 1. No diagnostic evidence of DVT. 2. Complex fluid collection within the right lower extremity indeterminate etiology correlate for hem atoma or abscess.
== END | disposition home or self-care (01) ==
LOC: RADUSWWP 12:17
PROVIDERS: ATTEND Family Medicine
DX: R60.0 Localized edema (principal); Z88.0 Allergy status to penicillin; R94.4 Abnormal results of kidney function studies; R94.5 Abnormal results of liver function studies

== ENCOUNTER → 2020-02-25 | Outpatient (CLI) | payer OTHER ==
[2020-02-25 16:13] LABS: African American GFR (CKD) 78.5 (60.0-200.0); Albumin 4.2 g/dL (3.80-4.90); Albumin/Globulin Ratio 2.33 (1.60-3.17); Anion Gap 5.8 mmol/L (4.00-12.00); BUN/Creat Ratio 13.85 Ratio (12.00-20.00); Calcium 9.3 mg/dL (8.7-10.3); Carbon Dioxide 27.2 mmol/L (21.6-31.8); Globulin 1.8 g/dL (1.6-3.3); Non-African American GFR(CKD) 67.8 (60.0-200.0); Potassium 4.1 mmol/L (3.5-5.5); Total Bilirubin 0.7 mg/dL (0.2-1.2)
== END | disposition home or self-care (01) ==
LOC: LABWHC1 10:38
PROVIDERS: ATTEND Family Medicine
DX: R94.5 Abnormal results of liver function studies (principal); R94.4 Abnormal results of kidney function studies
CPT/HCPCS: 36415; 80053; 86803

== ENCOUNTER → 2020-03-25 | Outpatient (CLI) | payer OTHER ==
--- NOTE | 2020-03-25 14:00 | MR ---
EXAMINATION TYPE: MR knee RT wo con DATE OF EXAM: 03/25/2020 COMPARISON: None HISTORY: Rt knee pain medial/anterior x 2 mos, no known trauma TECHNIQUE: Multiplanar, multisequence images of the knee is performed without IV contrast. FINDINGS: MEDIAL MENISCUS: There is increased signal within the posterior horn medial meniscus extending toward s inferior articular surface suggestive for an oblique tear. May be somewhat complex radial appearanc e to the tear near the midline horizontal increased signals within the anterior horn medial meniscus compatible with type I horizontal tear or degenerative change. LATERAL MENISCUS: Anterior and posterior horns are intact without tear. CRUCIATE LIGAMENTS: The anterior and posterior cruciate ligaments are intact and unremarkable. COLLATERAL LIGAMENTS: The lateral collateral ligament appears intact. There is some increased signal adjacent to the medial collateral ligament suggestive for strain. EXTENSOR MECHANISM: Visualized quadriceps and patellar tendons are intact. EFFUSION: Small to moderate joint effusion is present. POPLITEAL CYST: No popliteal/pacheco cyst. TRICOMPARTMENT SPACES: There is mild narrowing of the medial lateral compartment joint spaces. Patell ofemoral joint space appears preserved. CARTILAGE: There is diffuse thinning of the articular cartilage greater at the medial compartment. Fi ndings are compatible with osteoarthritic degenerative change. BONE MARROW SIGNAL: Some increased signals within the medial tibial plateau could be a small contusio n. OTHER: No additional significant abnormality is appreciated. IMPRESSION: 1. Complex tear posterior horn medial meniscus. 2. Type I tear anterior horn medial meniscus. 3. Small to moderate joint effusion. 4. Osteoarthritic degenerative change greatest in the medial compartment. 5. Contusion along the medial tibial plateau
== END | disposition home or self-care (01) ==
LOC: RADMRIMAIN 10:23
PROVIDERS: ATTEND Orthopaedic Surgery
DX: S83.231A Complex tear of medial meniscus, current injury, right knee, initial encounter (principal); S83.241A Other tear of medial meniscus, current injury, right knee, initial encounter; S80.01XA Contusion of right knee, initial encounter; M17.11 Unilateral primary osteoarthritis, right knee

== ENCOUNTER → 2020-03-30 | Outpatient (CLI) | payer OTHER ==
[2020-03-30 13:04] LABS: Basophils % (A) 1 %; Eosinophils # (A) 0.1 k/uL (0-0.7); Eosinophils % (A) 2 %; HCT 48.9 % (39.0-53.0); HGB 15.5 gm/dL (13.0-17.5); Lymphocytes # (A) 1.8 k/uL (1.0-4.8); Lymphocytes % (A) 35 %; MCH 30.5 pg (25.0-35.0); MCHC 31.7 g/dL (31.0-37.0); Mean Platelet Volume 7.7; Monocytes # (A) 0.3 k/uL (0-1.0); Monocytes % (A) 5 %; Neutrophils # (A) 2.9 k/uL (1.3-7.7); Neutrophils % (A) 56 %; Platelet Count 163 k/uL (150-450); RDW 13.5 % (11.5-15.5); WBC 5.2 k/uL (3.8-10.6)
[2020-03-30 13:11] LABS: Potassium 5.1 mmol/L (3.5-5.1)
== END | disposition home or self-care (01) ==
LOC: LABPAT 11:20
PROVIDERS: ATTEND Orthopaedic Surgery
DX: Z01.818 Encounter for other preprocedural examination (principal); M23.91 Unspecified internal derangement of right knee
CPT/HCPCS: 36415; 80051; 85025

== ENCOUNTER 2020-04-02 08:27 | Day surgery (SDC) | payer OTHER ==
[2020-03-31 13:45] VITALS: BMI 36.1
--- NOTE | 2020-04-01 19:39 | HP ---
HISTORY AND PHYSICAL CHIEF COMPLAINT: Right knee pain. 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 He was walking downhill when he felt a pop. He notes medial pain and buckling ever since. He has tried anti-inflammatories in addition to cortisone injection, with only temporary partial relief. He is off work. PAST MEDICAL HISTORY: Past medical history is significant for hypertension. PAST SURGICAL HISTORY: Past surgical history is significant for bilateral total hip arthroplasty, colonoscopy and ankle surgery. CURRENT MEDICATIONS: Atenolol. ALLERGIES: PENICILLIN. FAMILY HISTORY: Significant for cancer and diabetes. SOCIAL HISTORY: Significant for 1/4 pack per day tobacco use and social alcohol use. REVIEW OF SYSTEMS: Sixteen-point review of systems otherwise reviewed and is noncontributory. PHYSICAL EXAMINATION: On examination, the patient is approximately 6 feet 5 inches, 302 pounds of endomorphic habitus. HEENT exam is nonfocal. NECK: Supple. He has painless passive motion of the right hip. [id number] is negative. Active motion of right knee minus 10 to 120 degrees of flexion. He has moderate effusion. He is tender about the medial joint line. Collaterals are stable. Isabel is negative. Ayana's elicits medial pain. His distal neurovascular appears intact in the right lower extremity. RADIOGRAPHS: MRI report of the right knee shows evidence of a posteromedial meniscal tear. IMPRESSION: 1. Right knee symptomatic medial meniscal tear. 2. Increased body mass index. RECOMMENDATIONS: I talked to the patient at length regarding his condition and treatment options. At this point he is having significant pain and mechanical symptoms after this acute injury. After thorough discussion, he opts to proceed with surgery. We will plan to proceed with right knee arthroscopy with probable partial medial meniscectomy. We will likely perform that as an outpatient procedure. Risks and benefits were discussed at length in layman's terms. MMODL / IJN: [id number] /
[~2020-04-02 08:27] MED LIST changes: -ACETAMINOPHEN TAB 500 MG TAB PO ONE; -CLINDAMYCIN 900 MG in DEXTROSE 5% IN WATER 50 ML IVPB ONE; -HYDROmorphone 0.5 MG/0.5 ML SYRINGE IVP PRN; +LACTATED RINGERS 1,000 ML IV SCH; -LIDOCAINE 1% 20 ML VIAL (10MG/ML) FOR IV START INTRADERMA PRN; -MELOXICAM 7.5 MG TAB PO ONE; -TRANEXAMIC ACID 1,000 MG in SODIUM CHLORIDE 0.9% 100 ML IVPB ONE
[2020-04-02] MEDS ORDERED: ONDANSETRON 4 MG/2 ML VIAL ONE (09:23)
[2020-04-02] MEDS ORDERED: LIDOCAINE 1% (10MG/ML) FOR IV START INTRADERMA ONE (09:30)
[2020-04-02] MEDS ORDERED: PROPOFOL 10 MG/ML 20 ML VIAL IV ONE (10:06)
[2020-04-02] MEDS ORDERED: SUCCINYLCHOLINE CHLORIDE VIAL 200 MG/10 ML VIAL IV ONE (10:06)
[2020-04-02] MEDS ORDERED: PHENYLEPHRINE-0.9% NACL SYG 1 MG/10 ML SYRINGE ONE (10:06)
[2020-04-02] MEDS ORDERED: KETOROLAC 30 MG/ML 1 ML VIAL ONE (10:06)
[2020-04-02] MEDS ORDERED: MIDAZOLAM 2 MG/2 ML VIAL ONE (10:06)
[2020-04-02] MEDS ORDERED: HYDROmorphone (PF) 1 MG/ML ONE (10:06)
[2020-04-02] MEDS ORDERED: fentaNYL (PF) 50 MCG/ML 2 ML AMP ONE (10:06)
[2020-04-02] MEDS ORDERED: SODIUM CHLORIDE 0.9% 50 ML with CLINDAMYCIN 900 MG IV ONE ×2 (10:20)
--- NOTE | 2020-04-02 10:59 | P.OP ---
Date of Procedure: 04/02/20 Preoperative Diagnosis: Right knee internal derangement Postoperative Diagnosis: Right knee posterior medial meniscal tear/grade 3 chondral injury distal medial portion medial femoral condyle Procedure(s) Performed: Right knee arthroscopic partial medial meniscectomy/microfracture medial femoral condyle Anesthesia: JJA Surgeon: Sergio Mccallum Estimated Blood Loss (ml): 10 Pathology: none sent Condition: stable Disposition: PACU Indications for Procedure: The patient's a 39-year-old male who presents with progressive right knee pain and mechanical symptoms despite attempted conservative measures. A discussion of the risks and benefits of operative intervention was made with patient. He opted to proceed. Operative risks to include infection, neurovascular injury, development of blood clots, possible incomplete resolution of symptoms, possible worsening symptoms and need for subsequent procedures was discussed. Informed consent was obtained. Operative Findings: As below Description of Procedure: The patient was brought to the operating room, and after induction of general anesthesia examined the right knee. Collaterals were stable, Isabel was negative, and posterior drawer was negative. The right lower extremity was prepped and draped in a normal fashion. A superior lateral portal was made through a 3 mm skin incision superior and lateral to the patella. This was used for outflow. A lateral portal was made through a 5 mm vertical skin incision lateral to the patella tendon above the joint line. Diagnostic arthroscopy was performed. On inspection of the medial compartment, a complex tear involving posterior horn of the medial meniscus was noted in the white-red junction. This was debrided back to stable base with straight baskets and a motorized shaver. A corresponding grade 3 chondral injury was noted involving the posterior aspect of the medial femoral condyle. There was a loose chondral fragment debrided back to stable base with a motorized shaver. Microfracture is performed with a power pick breaching the subchondral surface down to the bone marrow elements. On inspection of the notch, the anterior cruciate ligament appeared to be intact. On inspection of the lateral compartment, no significant meniscal or cartilage pathology was noted. On inspection of the patellofemoral articulation, there is some chondral fibrillation however no loose chondral fragments. The gutters were clear debris. The knee was then thoroughly irrigated. The portals were closed with Steri-Strips. A sterile dressing was applied in addition to a compression stocking. The patient was awoken from general anesthesia and transferred to recovery room in good condition. Blood loss was estimated at 10 mL. No complications were incurred.
[2020-04-02] MEDS: HYDROmorphone 0.5 MG/0.5 ML SYRINGE IVP PRN ×5 (11:10→11:30)
[2020-04-02 11:13] VITALS: TEMP 97.1
[2020-04-02] MEDS ORDERED: LACTATED RINGERS 1,000 ML IV ONE (11:26)
[2020-04-02 11:33] VITALS: RESP 16
[2020-04-02] MEDS ORDERED: HYDROcodone/APAP 7.5-325MG 1 EACH TAB PO ONE (12:04)
[2020-04-02 12:18] VITALS: BP 146/85; PULSE 70
== END 2020-04-02 12:35 | disposition home or self-care (01) ==
LOC: OR 08:27
PROVIDERS: ATTEND Orthopaedic Surgery
DX: S83.241A Other tear of medial meniscus, current injury, right knee, initial encounter (principal); S89.91XA Unspecified injury of right lower leg, initial encounter; Z88.0 Allergy status to penicillin; I10 Essential (primary) hypertension; F17.210 Nicotine dependence, cigarettes, uncomplicated; K08.89 Other specified disorders of teeth and supporting structures; J45.909 Unspecified asthma, uncomplicated; K21.9 Gastro-esophageal reflux disease without esophagitis; Z96.643 Presence of artificial hip joint, bilateral; Z98.890 Other specified postprocedural states; Z79.899 Other long term (current) drug therapy; Z79.1 Long term (current) use of non-steroidal anti-inflammatories (NSAID); Z83.3 Family history of diabetes mellitus; Z80.9 Family history of malignant neoplasm, unspecified; X58.XXXA Exposure to other specified factors, initial encounter; Y93.01 Activity, walking, marching and hiking
CPT/HCPCS: 84132; 29881; 29879; J2250; J0330; J1100; J2405; J3010; J1885; J1170 ×2; J2370; J2704

== ENCOUNTER → 2020-08-09 | Outpatient (CLI) | payer OTHER ==
--- NOTE | 2020-08-09 08:36 | US ---
EXAMINATION TYPE: US renal artery duplex complete DATE OF EXAM: 08/09/2020 COMPARISON: NONE CLINICAL HISTORY: 40-year-old male I16.0 Hypertensive urgency. 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 Abdominal aortic peak systolic velocity is 69.6 cm/s. [employer] Supervisor notes: Technical limitations due to large amount of overlying bowel content. MEASUREMENTS: RENAL SIZE: Rt Kidney: 12.0 x 5.4 x 5.8cm. No hydronephrosis. Lt Kidney: 11.4 x 5.6 x 4.9cm. No hydronephrosis. Hypoechoic area left renal cortex measures 1.1 x 0 .8 1.1cm. RESISTANCE INDEX Right: 0.54 Left: 0.57 RA/AO RATIO (< 3.5 ) Right: 2.7 Left: 2.6 RA VELOCITY ( < 180 cm/s) Right: 184.6cm/s Left: 178.4cm/s IMPRESSION: 1. While the renal artery to aortic ratios do not meet Doppler criteria for renal artery stenosis, th e renal artery velocities are borderline to mildly elevated. Given the technical exam limitations lorelei rachel from overlying bowel content, consider MRA of the renal arteries to further evaluate. 2. A 1.1 cm cortical lesion within the left kidney redemonstrated. This is largely unchanged from 05/17. Neoplasm remains in the differential. Ongoing follow-up recommended.
[2020-08-09 09:27] LABS: Magnesium 2.1 mg/dL (1.6-2.3)
[2020-08-09 09:28] LABS: African American GFR (CKD) >90 (>60 ml/min/1.73 sqM); Anion Gap 8 mmol/L; Blood Urea Nitrogen 14 mg/dL (9-20); Calcium 9.1 mg/dL (8.4-10.2); Carbon Dioxide 26 mmol/L (22-30); Chloride 107 mmol/L (98-107); Glucose 102 mg/dL (74-99); Non-African American GFR(CKD) 80 (>60 ml/min/1.73 sqM); Potassium 4.2 mmol/L (3.5-5.1); Sodium 141 mmol/L (137-145)
== END | disposition home or self-care (01) ==
LOC: RADUSWWP 07:00
PROVIDERS: ATTEND Family Medicine
DX: I16.0 Hypertensive urgency (principal); I10 Essential (primary) hypertension; N28.89 Other specified disorders of kidney and ureter; Z88.0 Allergy status to penicillin
CPT/HCPCS: 36415; 80048; 83735; 84443; 93975

== ENCOUNTER → 2020-08-30 | Outpatient (CLI) | payer OTHER ==
--- NOTE | 2020-08-30 13:13 | MR ---
EXAMINATION TYPE: MR angio renal wo/w con DATE OF EXAM: 08/30/2020 COMPARISON: Ultrasound 08/09/2020, CT scan 06/13/2019 HISTORY: High BP CONTRAST: Standard multiplanar, multisequence MRI departmental protocol utilizing 13.5 mL intravenous Gadavist gadolinium contrast. FINDINGS: Subcentimeter hypoechoic low signal involving the left kidney does not meet the criteria of a simple cyst. Aorta of normal caliber. Visualized renal arteries appear to be patent with no diagnostic evidence of renal artery stenosis. Liver, spleen, pancreas, adrenal glands have a normal appearance. No free fluid. Visualized bowel gas pattern nonspecific. Vertebral body hemangioma are noted. Tiny gallbladder polyp or adherent stones SPECT imaging near the fundus. No hydronephrosis or nephrolithiasis. Tiny accessory spleen incidental ly noted. IMPRESSION: 1. No evidence of renal artery stenosis. 2. There are 2 subcentimeter left renal lesions which do not meet the criteria of a simple cyst. No s ignificant enhancement. Could represent complicated cyst although tiny neoplasms are not excluded. Th elly appear stable from the CT scan of 06/13/2019. Differential includes complex cyst or cysts tiny rainer id lesion. Six-month follow-up CT scan could be obtained to confirm stability.
== END | disposition home or self-care (01) ==
LOC: RADMRIMAIN 11:50
PROVIDERS: ATTEND Family Medicine
DX: N28.89 Other specified disorders of kidney and ureter (principal); I10 Essential (primary) hypertension
CPT/HCPCS: C8902; A9585; 74185

== ENCOUNTER → 2021-01-07 | Outpatient (CLI) | payer OTHER ==
[2021-01-07 19:26] LABS: African American GFR (CKD) 85.9 (60.0-200.0); Albumin 4.5 g/dL (3.80-4.90); Albumin/Globulin Ratio 2.25 (1.60-3.17); Anion Gap 7.3 mmol/L (4.00-12.00); BUN/Creat Ratio 12.5 Ratio (12.00-20.00); Calcium 9.7 mg/dL (8.7-10.3); Carbon Dioxide 27.7 mmol/L (21.6-31.8); Non-African American GFR(CKD) 74.1 (60.0-200.0); Total Bilirubin 0.7 mg/dL (0.2-1.2); Total Protein 6.5 g/dL (6.2-8.2)
== END | disposition home or self-care (01) ==
LOC: LABWHC1 11:27
PROVIDERS: ATTEND Physician Assistant
DX: Z51.81 Encounter for therapeutic drug level monitoring (principal); Z79.891 Long term (current) use of opiate analgesic
CPT/HCPCS: 36415; 80053

== ENCOUNTER 2021-02-13 09:03 | Emergency (ER) | payer OTHER ==
[2021-02-13 09:12] VITALS: RESP 18; TEMP 98
[2021-02-13] MEDS ORDERED: HYDROmorphone 1 MG/ML 1 ML SYRINGE IM STA (09:21)
--- NOTE | 2021-02-13 09:23 | ED ---
General Adult HPI - General Chief complaint: Extremity Injury, Lower Stated complaint: lt leg pain/swelling Time Seen by Provider: 02/13/21 09:13 Source: patient, RN notes reviewed Mode of arrival: ambulatory Limitations: no limitations - History of Present Illness Initial comments: Patient is a pleasant 40-year-old male presenting to the emergency Department with complaints of left leg pain. Onset of symptoms was around 10:00 last night. Patient is unclear why it started. Symptoms are fairly chronic. Patient has discomfort from his hip down to his ankle. No history of similar symptoms previously. Patient does have history of chronic bilateral knee, left hip, sciatica and back pain. Patient did have 2 previous surgeries and right knee surgery. Patient is planning to have left knee surgery. Patient did take Vicodin with only mild improvement of symptoms. No swelling. No chest pain or dyspnea. Discomfort increases with movement. Patient states back discomfort is only mild at this time. No weakness. No incontinence or retention - Related Data Home Medications Medication Instructions Recorded Confirmed Ranitidine HCl 150 mg PO DAILY 12/24/17 03/31/20 Sildenafil Citrate [Viagra] 50 mg PO ONCE PRN 03/31/20 03/31/20 Spironolactone [Aldactone] 25 mg PO BID 03/31/20 03/31/20 Valsartan/Hydrochlorothiazide 1 each PO DAILY 03/31/20 03/31/20 [Valsartan-Hctz 320-25 mg Tab] amLODIPine BESYLATE 10 mg PO DAILY 03/31/20 03/31/20 atenoloL [Tenormin] 50 mg PO DAILY 03/31/20 03/31/20 Previous Rx's Medication Instructions Recorded Ketorolac [Toradol] 10 mg PO Q6HR #12 tab 03/05/19 HYDROcodone/APAP 7.5-325MG [[place] 1 each PO Q6HR PRN #21 tab 04/02/20 7.5] methylPREDNISolone Dose Pack 24 mg PO DAILY #1 tab 02/13/21 [Medrol Dose Pack] Allergies Allergy/AdvReac Type Severity Reaction Status Date / Time bee venom protein (honey bee) Allergy Severe Swelling Verified 02/13/21 09:12 Penicillins Allergy Anaphylaxis Verified 02/13/21 09:12 Review of Systems ROS Statement: Those systems with pertinent positive or pertinent negative responses have been documented in the HPI. ROS Other: All systems not noted in ROS Statement are negative. Constitutional: Denies: fever Eyes: Denies: eye pain ENT: Denies: ear pain Respiratory: Denies: cough Cardiovascular: Denies: palpitations Endocrine: Denies: fatigue Gastrointestinal: Denies: abdominal pain Genitourinary: Denies: urgency Musculoskeletal: Reports: as per HPI Skin: Denies: rash Neurological: Denies: headache, weakness Past Medical History Past Medical History: Asthma, GERD/Reflux, Hypertension, Musculoskeletal Disorder, Osteoarthritis (OA) Additional Past Medical History / Comment(s): low back pain & left thigh numb. ASTHMA CHILD. History of Any Multi-Drug Resistant Organisms: None Reported Past Surgical History: Orthopedic Surgery Additional Past Surgical History / Comment(s): LT ankle, RT elbow surg., laser eye surg. Colonoscopy; EGD. PAIN PROC Past Anesthesia/Blood Transfusion Reactions: No Reported Reaction Past Psychological History: No Psychological Hx Reported Smoking Status: Current every day smoker Past Alcohol Use History: Occasional Past Drug Use History: None Reported - Past Family History Father Family Medical History: Deep Vein Thrombosis (DVT) Brother(s) Family Medical History: Cancer General Exam Limitations: no limitations General appearance: alert, in no apparent distress Head exam: Present: normocephalic Eye exam: Present: normal appearance Neck exam: Present: normal inspection Respiratory exam: Present: normal lung sounds bilaterally Cardiovascular Exam: Present: regular rate, normal rhythm Expanded Peripheral pulses: 2+: Dorsalis Pedis (L) GI/Abdominal exam: Present: soft. Absent: tenderness Extremities exam: Present: tenderness (Minimal tenderness left mid anterior castillo. No calf tenderness, popliteal tenderness, or upper leg tenderness.) Back exam: Present: other (Lumbar tenderness. Patient does have moderate tenderness left sciatic region) Neurological exam: Present: alert. Absent: motor sensory deficit Psychiatric exam: Present: normal affect, normal mood Skin exam: Present: warm, normal color Course Vital Signs 02/13/21 02/13/21 09:08 10:33 Temperature 98.0 F Pulse Rate 90 76 Respiratory 18 18 Rate Blood Pressure 173/116 151/111 O2 Sat by Pulse 97 98 Oximetry Medical Decision Making - Medical Decision Making Patient reevaluated and resting comfortably in bed. Patient updated on results and need for follow-up. Patient states blood pressure is normal for him. Disposition Clinical Impression: Sciatica Disposition: HOME SELF-CARE Condition: Stable Instructions (If sedation given, give patient instructions): Sciatica (ED) Additional Instructions: Please do follow-up with your primary care physician and orthopedic doctor in the beginning of the week. Prescription for steroids has been sent to your pharmacy. Return for increased pain, weakness, loss of control of bowel or bladder, worsening symptoms or any other concerns. Prescriptions: methylPREDNISolone Dose Pack [Medrol Dose Pack] 24 mg PO DAILY #1 tab Is patient prescribed a controlled substance at d/c from ED?: No Referrals: David Blair MD [Primary Care Provider] - 1-2 days Time of Disposition: 11:23
[2021-02-13] MEDS ORDERED: amLODIPine 10 MG TAB PO STA (09:28)
[2021-02-13] MEDS ORDERED: atenoloL 50 MG TAB PO STA (09:28)
[2021-02-13] MEDS ORDERED: VALSARTAN 160 MG TAB PO STA (09:32)
[2021-02-13] MEDS ORDERED: hydroCHLOROthiazide 25 MG TAB PO SCH (09:45)
[2021-02-13 10:34] VITALS: BP 151/111; PULSE 76
--- NOTE | 2021-02-13 10:58 | US ---
EXAMINATION TYPE: US venous doppler duplex LE LT DATE OF EXAM: 02/13/2021 10:27 AM COMPARISON: 02/24/2020 CLINICAL HISTORY: pain. Pain SIDE PERFORMED: Left TECHNIQUE: The lower extremity deep venous system is examined utilizing real time linear array sonog ruba with graded compression, doppler sonography and color-flow sonography. VESSELS IMAGED: Common Femoral Vein Deep Femoral Vein Greater Saphenous Vein * Femoral Vein Popliteal Vein Small Saphenous Vein * Proximal Calf Veins (* superficial vessels) Left Leg: Negative for DVT IMPRESSION: Grayscale, color doppler, spectral doppler imaging performed of the deep veins of the lo wer extremities. There is normal flow, compressibility, vascular waveforms.
[2021-02-13] MEDS ORDERED: SPIRONOLACTONE 25 MG TAB PO STA (11:24)
== END 2021-02-13 11:25 | disposition home or self-care (01) ==
LOC: EC 09:03
DX: M54.32 Sciatica, left side (principal); J45.909 Unspecified asthma, uncomplicated; I10 Essential (primary) hypertension; K21.9 Gastro-esophageal reflux disease without esophagitis; M19.90 Unspecified osteoarthritis, unspecified site; F17.200 Nicotine dependence, unspecified, uncomplicated
CPT/HCPCS: 93971; 99283; 96372; J1170

== ENCOUNTER → 2021-03-12 | Outpatient (CLI) | payer OTHER ==
--- NOTE | 2021-03-12 15:04 | MR ---
EXAMINATION TYPE: MR lumbar spine wo con DATE OF EXAM: 03/12/2021 COMPARISON: HISTORY: Low back pain TECHNIQUE: Multiplanar, multisequence images of the lumbar spine were acquired. L1-L2: Posterior disc bulge causes slight anterior mass effect on the thecal sac. L2-L3: Posterior disc bulge causes anterior mass effect on the thecal sac, only mild spinal stenosis. Hemangiomas present within the L2 vertebral body. Circumferential extension endplate disc complex en croaches somewhat on the inferior margin the neural foramen on the right. L3-L4: Posterior disc bulge causes slight anterior mass effect on the thecal sac. Circumferential ext ension endplate disc complex encroaches minimally on the inferior aspect of the neural foramina. L4-L5: Posterior disc bulge causes slight anterior mass effect on the thecal sac. Circumferential ext ension endplate disc complex encroaches upon the inferior margin of the foramina greater on the left. L5-S1: There is some facet arthropathy change present. Posterior disc bulge causes slight anterior ma ss effect on the thecal sac. Circumferential extension endplate disc complex encroaches upon the infe rior aspect of the foramina. Lumbar segments are intact. No paraspinal masses are identified. Conus medullaris has a normal appe arance. There is mild multilevel spondylosis. Loss of disc height signal present L3-4, L2-3 and L1-2, is endplate discogenic marrow signal change. No significant spinal stenosis. Lumbar vertebral bodies show preserved height and alignment. IMPRESSION: Degenerative disc disease without significant spinal stenosis.
== END ==
LOC: RADMRIMAIN 11:36
PROVIDERS: ATTEND Physician Assistant
DX: M51.36 Other intervertebral disc degeneration, lumbar region (principal)
CPT/HCPCS: 72148

== ENCOUNTER → 2021-04-06 | Outpatient (CLI) | payer OTHER ==
[2021-04-06 14:24] LABS: Basophils # (A) 0.03 X 10*3/uL (0.00-0.10); Basophils % (A) 0.5 %; Eosinophils % (A) 1.6 %; HCT 47.2 % (39.6-50.0); HGB 15.6 g/dL (13.0-17.0); Lymphocytes # (A) 2.26 X 10*3/uL (0.90-5.00); Lymphocytes % (A) 35.3 %; MCH 30.7 pg (27.0-32.0); MCHC 33.1 g/dL (32.0-37.0); MCV 92.9 fL (80.0-97.0); Monocytes # (A) 0.41 X 10*3/uL (0.20-1.00); Monocytes % (A) 6.4 %; Neutrophils # (A) 3.58 X 10*3/uL (1.80-7.70); Neutrophils % (A) 55.7 %; Platelet Count 195 X 10*3/uL (140-440); RBC 5.08 X 10*6/uL (4.40-5.60); WBC 6.41 X 10*3/uL (4.50-10.00)
[2021-04-06 14:58] LABS: INR 0.87 (0.90-1.11); Prothrombin Time 9.6 sec (9.9-11.9)
[2021-04-06 23:20] LABS: African American GFR (CKD) 85.9 (60.0-200.0); Albumin 4.5 g/dL (3.80-4.90); Albumin/Globulin Ratio 2.05 (1.60-3.17); Anion Gap 10.4 mmol/L (4.00-12.00); BUN/Creat Ratio 13.33 Ratio (12.00-20.00); Carbon Dioxide 22.6 mmol/L (21.6-31.8); Globulin 2.2 g/dL (1.6-3.3); Non-African American GFR(CKD) 74.1 (60.0-200.0); Potassium 4.3 mmol/L (3.5-5.5); Total Bilirubin 0.8 mg/dL (0.2-1.2); Total Protein 6.7 g/dL (6.2-8.2)
== END | disposition home or self-care (01) ==
LOC: LABWHC1 10:35
PROVIDERS: ATTEND Family Medicine
DX: Z01.810 Encounter for preprocedural cardiovascular examination (principal); Z01.812 Encounter for preprocedural laboratory examination; M54.17 Radiculopathy, lumbosacral region; N52.1 Erectile dysfunction due to diseases classified elsewhere
CPT/HCPCS: 36415; 80053; 85025; 85610; 93005

== ENCOUNTER → 2023-10-12 | Outpatient (CLI) | payer OTHER ==
[2023-10-12 19:23] LABS: Blood Urea Nitrogen 16.7 mg/dL (9.0-27.0); Carbon Dioxide 23.7 mmol/L (21.6-31.8); Chloride 106 mmol/L (96-109); Glucose 114 mg/dL (70-110); Potassium 4.3 mmol/L (3.5-5.5); Sodium 141 mmol/L (135-145)
== END | disposition home or self-care (01) ==
LOC: LABWHC1 14:37
PROVIDERS: ATTEND Family Medicine
DX: I10 Essential (primary) hypertension (principal)
CPT/HCPCS: 36415; 80048

== ENCOUNTER → 2023-12-05 | Outpatient (CLI) | payer OTHER ==
--- NOTE | 2023-12-05 20:11 | US ---
EXAMINATION TYPE: US renal artery duplex complete DATE OF EXAM: 12/05/2023 COMPARISON: None CLINICAL INDICATION: Male, 43 years old with history of I10 ESSENTIAL (PRIMARY) HYPERTENSION; HTN x 8 years, on medication with no change in HTN; Headaches MEASUREMENTS: RENAL SIZE: Right Kidney: 12.3 x 5.9 x 5.5 cm without hydronephrosis. Left Kidney: 11.6 x 5.6 x 5.0 cm with a few scattered cortical hypoechoic lesions largest measuring 1 .9 cm. Follow-up recommended. Possible cysts with internal echoes representing artifact or debris. No hydronephrosis. Abd Aorta: Aneurysmal proximal abdominal aorta measuring up to 3.4 cm. Peak systolic velocity 60.2 c m/s RESISTANCE INDEX Right: 0.85 Left: 0.90 RA/AO RATIO (< 3.5 ) Right: 0.88 Left: 1.07 RENAL ARTERY VELOCITY ( < 180 cm/s) Right: 53 Left: 56 IMPRESSION: 1. No sonographic/Doppler evidence for renal artery stenosis on either side. 2. A few cortical lesions in the left kidney measuring up to 1.9 cm. Possible cyst with internal colo n representing artifact or debris. Six-month follow-up renal ultrasound to reassess.
== END | disposition home or self-care (01) ==
LOC: RADUSWWP 10-12 14:13
PROVIDERS: ATTEND Family Medicine
DX: N28.89 Other specified disorders of kidney and ureter (principal); I10 Essential (primary) hypertension; R51.9 Headache, unspecified
CPT/HCPCS: 93975

== ENCOUNTER → 2024-01-24 | Outpatient (CLI) | payer OTHER ==
--- NOTE | 2024-01-24 12:17 | CT ---
EXAMINATION TYPE: CT brain wo/w con DATE OF EXAM: 01/24/2024 COMPARISON: 01/27/2011 HISTORY: Ischemic optic neuropathy, RT eye, pt states eye is blurry, halo in vision, possible prior T IA. CT DLP: 2533mGycm CONTRAST: CT scan of the head is performed with IV Contrast, patient injected with 100 mL of Isovue 300. Unenhanced followed by contrast enhanced CT of the brain is submitted for evaluation. The ventricles are midline. There is no evidence for intracranial hemorrhage or extra-axial collection. No mass e ffects are identified. Visualized bony calvarium is intact. Contrast is administered and no enhanci ng lesions are detected. No pathologic enhancement is identified. If symptoms persist consider MRI. IMPRESSION: Unremarkable CT brain.
== END | disposition home or self-care (01) ==
LOC: RADCTMAIN 06:57
PROVIDERS: ATTEND Optometrist
DX: H47.011 Ischemic optic neuropathy, right eye (principal)
CPT/HCPCS: 70470; Q9967

== ENCOUNTER → 2025-05-14 | Outpatient (CLI) | payer OTHER ==
[2025-05-14 15:11] LABS: HCT 46.2 % (39.6-50.0); HGB 15.3 g/dL (13.0-17.0); MCH 31.0 pg (27.0-32.0); MCHC 33.1 g/dL (32.0-37.0); MCV 93.5 FL (80.0-97.0); NRBC Per 100 WBC 0 X 10*3/uL (0.00-0.01); Platelet Count 182 X 10*3/uL (140-440); RBC 4.94 X 10*6/uL (4.40-5.60); RDW 13.2 % (11.5-14.5); WBC 4.93 X 10*3/uL (4.50-10.00)
[2025-05-14 15:38] LABS: NT-Pro-B-Type Natriuretic Pept 497 pg/mL (0-125)
[2025-05-14 15:41] LABS: ALT 21 U/L (10-49); AST 16 U/L (14-35); Albumin 4.3 g/dL (3.8-4.9); Albumin/Globulin Ratio 2.26 Ratio (1.60-3.17); Alkaline Phosphatase 56 U/L (41-126); Anion Gap 11.10 mmol/L (4.00-12.00); BUN/Creat Ratio 15.40 Ratio (12.00-20.00); Blood Urea Nitrogen 15.4 mg/dL (9.0-27.0); Calcium 9.0 mg/dL (8.7-10.3); Carbon Dioxide 25.9 mmol/L (21.6-31.8); Chloride 104 mmol/L (96-109); Cholesterol 194.00 mg/dL (0.00-200.00); Globulin 1.9 g/dL (1.6-3.3); Glucose 118 mg/dL (70-110); HDL Cholesterol 60.60 mg/dL (40.00-60.00); LDL Cholesterol,Calculated 109.8 mg/dL (0.0-131.0); Potassium 4.1 mmol/L (3.5-5.5); Sodium 141 mmol/L (135-145); Total Protein 6.2 g/dL (6.2-8.2); Triglycerides 118.00 mg/dL (0.00-149.00); VLDL Calculation 23.60 mg/dL (5.00-40.00)
== END | disposition home or self-care (01) ==
LOC: LABWHC1 11:04
PROVIDERS: ATTEND Student in an Organized Health Care Education/Training Program
DX: Z13.6 Encounter for screening for cardiovascular disorders (principal); D72.9 Disorder of white blood cells, unspecified; I50.9 Heart failure, unspecified; E11.9 Type 2 diabetes mellitus without complications; E03.9 Hypothyroidism, unspecified; E78.5 Hyperlipidemia, unspecified; R79.89 Other specified abnormal findings of blood chemistry
CPT/HCPCS: 36415; 80053; 80061; 83036; 83880; 84443; 85027; 86140